=== PATIENT | female | born 1955 | race African-American/Black ===

== ENCOUNTER 2018-12-28 17:00 | Outpatient (CLI) | payer OTHER | END 2018-12-28 17:01 | disposition home or self-care (01) | LOC: SLEEPLAB 17:00 | PROVIDERS: ATTEND Family Medicine | DX: G47.33 Obstructive sleep apnea (adult) (pediatric) (principal); I10 Essential (primary) hypertension; E11.9 Type 2 diabetes mellitus without complications; F32.9 Major depressive disorder, single episode, unspecified | CPT/HCPCS: 95806 ==

== ENCOUNTER 2020-01-08 11:28 | Emergency (ER) | payer MEDICARE, OTHER ==
--- NOTE | 2020-01-08 12:43 | RAD ---
CHEST ONE VIEW: History: Cough Comparison: 05-17-17 FINDINGS: There is rotation to the left. Heart size is borderline. There is some bilateral vascular congestion and probable small left pleural effusion. No confluent lobar pneumonia. Little change from prior stud y. IMPRESSION: Mild vascular congestion with probable small left pleural effusion. No confluent lobar pneumonia or o ther acute process. POS: [facility]
== END 2020-01-08 12:46 | disposition home or self-care (01) ==
LOC: ERS 11:28
DX: R05 Cough (principal); E66.01 Morbid (severe) obesity due to excess calories; E11.9 Type 2 diabetes mellitus without complications; I25.10 Atherosclerotic heart disease of native coronary artery without angina pectoris; I11.0 Hypertensive heart disease with heart failure; I50.9 Heart failure, unspecified; D64.9 Anemia, unspecified; F32.9 Major depressive disorder, single episode, unspecified; I21.3 ST elevation (STEMI) myocardial infarction of unspecified site; F03.90 Unspecified dementia, unspecified severity, without behavioral disturbance, psychotic disturbance, mood disturbance, and anxiety; Z86.73 Personal history of transient ischemic attack (TIA), and cerebral infarction without residual deficits; Z87.01 Personal history of pneumonia (recurrent)
CPT/HCPCS: 71045; 93005

== ENCOUNTER 2020-06-12 14:26 | Inpatient (IN) | payer MEDICARE, MEDICAID, OTHER ==
[~2020-06-12 14:26] MED LIST: Iopamidol 370 76% 100 ML VIAL ONE
[2020-06-12 17:37] LABS: Hemoglobin 11.7 g/dL (12.0-16.0); Mean Corpuscular Hemoglobin 31.8 pg (27.0-31.0); Mean Corpuscular Volume 99.7 fL (78.0-98.0); Mean Platelet Volume 8.2 fL (7.4-10.4); Platelet Count 257 thou/uL (130-400); RBC Distribution Width 13.6 % (11.5-14.5); Red Blood Cell (RBC) Count 3.68 mill/uL (4.20-5.40); White Blood Cell (WBC) Count 6.3 thou/uL (4.8-10.8)
[2020-06-12 17:55] LABS: Eosinophils 2 % (0-10); Lymphocytes 47 % (21-51); MDiff Complete? YES; Monocytes 10 % (0-10); Neutrophil 40 % (42-75); Platelet Morphology Comment Appears Adequate; Polychromasia SLIGHT = 2-3 cells (100X) (0-2/hpf)
[2020-06-12 17:58] LABS: ALT (SGPT) 24 U/L (8-55); AST (SGOT) 27 U/L (5-34); Albumin 3.3 g/dL (3.4-4.8); Alkaline Phosphatase 220 U/L (40-110); Anion Gap 13 mmol/L (10-20); BUN (Urea Nitrogen) 51 mg/dL (9.8-20.1); Bilirubin, Total 0.4 mg/dL (0.2-1.2); CK (CPK) 86 U/L (29-168); Calc. Creatinine Clearance 0 mL/min (70-130); Calcium 9.4 mg/dL (7.8-10.44); Carbon Dioxide 31 mmol/L (23-31); Chloride 97 mmol/L (98-107); Estimated GFR-MDRD 8; Globulin 4.2 g/dL (2.4-3.5); Glucose 141 mg/dL (80-115); Potassium 4.8 mmol/L (3.5-5.1); Protein, Total 7.5 g/dL (6.0-8.3); Sodium 136 mmol/L (136-145)
[2020-06-12] MEDS ORDERED: metroNIDAZOLE 500 MG/100 ML BAG ONE (18:00)
[2020-06-12] MEDS ORDERED: Doxycycline 100 MG CAP PO SCH (18:15)
[2020-06-12] MEDS ORDERED: Diazepam 5 MG TAB ONE (19:58)
--- NOTE | 2020-06-12 23:16 | PDOC.FPRHP ---
- History of Present Illness Chief Complaint: vaginal bleeding History of Present Illness: Pt is a 65yo female with PMH of obesity, DM, ESRD who presents with vaginal bleeding. Pt is a resident at a [facility] in [place]. Says nurse noticed bleeding. She was seen by placement interviewer at outpatient clinic but was unable to be fully evaluated due to patient's size, so she was sent to ED. Dr. Lacy, news production supervisor, was consulted from ED. Pt denies any abdominal pain, dizziness, CP, SOB or palpitations. ED Course: 1L LR, diazepam - Allergies/Adverse Reactions Allergies Allergy/AdvReac Type Severity Reaction Status Date / Time No Known Drug Allergies Allergy Verified 06/13/20 02:02 - Home Medications Medication Instructions Recorded Confirmed Type Acetaminophen [Tylenol Regular 650 mg PO Q6HR PRN 09/04/16 06/13/20 History Strength] Aspirin Chewable [Aspirin Chewable 81 mg PO QAM 09/04/16 06/13/20 History Tablet] Atorvastatin Calcium [Lipitor] 40 mg PO HS 09/04/16 06/13/20 History Ferrous Sulfate [Feosol] 325 mg PO DAILY 09/04/16 06/13/20 History buPROPion HCl [Wellbutrin] 100 mg PO BID 09/04/16 06/13/20 History Apixaban [Eliquis] 5 mg PO BID 01/02/17 06/13/20 History Carvedilol [Coreg] 6.25 mg PO BID 01/02/17 06/13/20 History Amiodarone [Cordarone] 200 mg PO BID 06/13/20 06/13/20 History BuPROPion SR [Wellbutrin SR] 100 mg PO QAM 06/13/20 06/13/20 History Cetirizine HCl [Zyrtec] 10 mg PO QAM 06/13/20 06/13/20 History Donepezil HCl [Aricept] 10 mg PO QPM 06/13/20 06/13/20 History Insulin Detemir [Levemir] 6 units SQ BID 06/13/20 06/13/20 History Sevelamer Carbonate [Renvela] 1,600 mg PO BID 06/13/20 06/13/20 History risperiDONE [RisperDAL] 0.25 mg PO BID 09/22/20 09/22/20 History - History PMHx: DM2, HTN, morbid obesity, ESRD, depression, dementia PSHx: none FHx: mpm-heart Social: no T/A/D - Review of Systems General: denies: fever/chills, weight/appetite/sleep changes Eyes: denies: eye pain, vision changes ENT: denies: nasal congestion, rhinorrhea Respiratory: denies: cough, congestion, shortness of breath Cardiovascular: denies: chest pain, palpitation, edema Gastrointestinal: denies: nausea, vomiting, diarrhea, abdominal pain Genitourinary: denies: incontinence, dysuria Skin: denies: rashes, itching Musculoskeletal: denies: pain, tenderness Neurological: denies: numbness, syncope Psychological: denies: anxiety - Vital signs BP: 158/54, HR 58, RR 17, T 98.3, O2 100% on 2L FMR H&P: Results - Labs Result Diagrams: 06/13/20 01:01 06/12/20 17:23 Lab results: WBC 6.3 thou/uL (4.8-10.8) 06/12/20 17:23 Hgb 11.7 g/dL (12.0-16.0) L 06/12/20 17:23 Hct 36.7 % (36.0-47.0) 06/12/20 17:23 MCV 99.7 fL (78.0-98.0) H 06/12/20 17:23 Plt Count 257 thou/uL (130-400) 06/12/20 17:23 Sodium 136 mmol/L (136-145) 06/12/20 17:23 Potassium 4.8 mmol/L (3.5-5.1) 06/12/20 17:23 Chloride 97 mmol/L (98-107) L 06/12/20 17:23 Carbon Dioxide 31 mmol/L (23-31) 06/12/20 17:23 BUN 51 mg/dL (9.8-20.1) H 06/12/20 17:23 Creatinine 6.37 mg/dL (0.6-1.1) H 06/12/20 17:23 Glucose 141 mg/dL (80-115) H 06/12/20 17:23 Lactic Acid 1.5 mmol/L (0.5-2.2) 06/12/20 17:23 Calcium 9.4 mg/dL (7.8-10.44) 06/12/20 17:23 Total Bilirubin 0.4 mg/dL (0.2-1.2) 06/12/20 17:23 AST 27 U/L (5-34) 06/12/20 17:23 ALT 24 U/L (8-55) 06/12/20 17:23 Alkaline Phosphatase 220 U/L (40-110) H 06/12/20 17:23 Creatine Kinase 86 U/L (29-168) 06/12/20 17:23 Serum Total Protein 7.5 g/dL (6.0-8.3) 06/12/20 17:23 Albumin 3.3 g/dL (3.4-4.8) L 06/12/20 17:23 FMR H&P: A/P - Plan #Abnormal uterine bleeding -seen by obgyn in ED, suspected uterine carcinoma -unable to tolerate vaginal exam -CT ab/pelv done, pending read -plan for exam under anesthesia tomorrow, VP3, vaginal discharge culture -Abx: flagyl and doxycycline #Hypothyroid -pending TSH and T4 #ESRD on HD -consult Dr. Mustafa, her travel rn, in am - usually gets dialysis T//Fri #DM -glucose checks ACHS -continue home meds #HTN -continue home meds #depression -continue home meds #dementia -continue home meds Code: Full Diet: CC, Renal DVT ppx: heparin Dispo: Admit tele inpatient, Obgyn recs for AUB, LOS >48hours FMR H&P: Upper Level - Plan Date/Time: 06/12/20 1414 Ms Abarca is a 65yo female with pmh of DMII, ESRD on HD who presented to Dr Guthrie office earlier today from [facility] for vaginal bleeding and discharge. She was unable to preform pelvic exam due to patients body habitus with equipment available therefore was sent over for further workup and evaluation. Buildings And Grounds Director was consulted from ED and vaginal exam revealed purulent discharge per ED physician. CT scan is pending at this time. PE: General: NAD, Morbidly obese CV: RRR, no murmur Pulm: CTA b/l Abdomen: Nontender. BS + A/P: AUB -Dr Lacy with ad taker consulted from ED. Pelvic exam revealed purulent discharge. CT read pending at this time of abdomen/pelvis. Started on doxycycline and Flagyl in ED, will continue. Plan for pelvic exam with anesthesia tomorrow, will collect VP3. Admit to medical. DMII -ACHS accuchecks. Continue home medications. Last A1c 7.1% in 10/2019 will recheck A1c in case pt needs surgery. Hypothyroidism -Last TSH <0.015, will recheck with T4. I, Huma Carroll, have evaluated this patient and agree with findings/plan as outlined by internal audit consultant resident. Pertinent changes/additions are listed here. Addendum - Attending - Attending Attestation Date/Time: 06/13/20 0043 I personally evaluated the patient and discussed the management with Dr. Tse/Glen I agree with the History, Examination, Assessment and Plan documented above with any addition or exceptions noted below. 65-year-old -[place] woman with past medical history of end-stage renal disease on hemodialysis, hypertension, hyperlipidemia, diabetes mellitus type 2, and morbid obesity. She presented for a pelvic exam from her WARDROBE MISTRESS's office due to concern for vaginal bleeding. WARDROBE MISTRESS hospitalist was consulted in the ER for pelvic exam. Per report patient had a large amount of purulent discharge coming from her vagina during the exam. WARDROBE MISTRESS recommended admission for antibiotics and surgical exploration with examination under anesthesia. Otherwise physical exam is unremarkable. Laboratory evaluation was unremarkable. CT abdomen and pelvis without contrast was unremarkable. Admit inpatient for concerning uterine versus vaginal mass, possible SOFTWARE TRAINER infection, and need for po tential hysterectomy. We will medically optimize the patient for surgery as anticipated in the next few days. Her chronic medical problems appear to be stable at this time. Will consider cardiology consultation for recommendations and cardiac clearance. WARDROBE MISTRESS to manage antibiotics and anesthetize exam. We will coordinate with them.
[2020-06-12] MEDS ORDERED: Ondansetron PF 4 MG/2 ML Vial IVP PRN (23:41)
[2020-06-12] MEDS ORDERED: Dextrose 5% in Water 1,000 ML IV PRN (23:41)
[2020-06-12] MEDS ORDERED: Acetaminophen 325 MG TAB PO PRN (23:41)
[2020-06-12] MEDS ORDERED: HumaLOG 300 UNITS/3 ML VIAL SC PRN (23:41)
[2020-06-12] MEDS ORDERED: Dextrose 50% Abboject 50 ML SYRINGE SLOW IVP PRN (23:41)
[2020-06-12] MEDS ORDERED: Acetaminophen 650 MG Suppository PR PRN (23:41)
[2020-06-12] MEDS ORDERED: Ondansetron ODT 4 MG TAB PO PRN (23:41)
[2020-06-13 01:11] LABS: #Eosinphils 0.2 thou/uL (0.0-0.7); #Lymphocytes 2.3 thou/uL (1.20-3.40); #Monocytes 0.8 thou/uL (0.11-0.59); #Neutrophils 3.4 thou/uL (1.40-6.50); %Basophils 0.2 % (0.0-1.0); %Eosinophils 2.3 % (0.0-10.0); %Lymphocytes 34.5 % (21.0-51.0); %Monocytes 12.3 % (0.0-10.0); %Neutrophils 50.8 % (42.0-75.0); Hemoglobin 11.4 g/dL (12.0-16.0); Mean Corpuscular HGB CONC 30.8 g/dL (32.0-36.0); Mean Corpuscular Hemoglobin 31.5 pg (27.0-31.0); Mean Platelet Volume 8.2 fL (7.4-10.4); Platelet Count 248 thou/uL (130-400); RBC Distribution Width 13.9 % (11.5-14.5); Red Blood Cell (RBC) Count 3.63 mill/uL (4.20-5.40); White Blood Cell (WBC) Count 6.7 thou/uL (4.8-10.8)
[2020-06-13 01:36] LABS: Hemoglobin A1c 7.8 % (4.0-6.0)
[2020-06-13 02:00] VITALS: BMI 61.9
[2020-06-13 02:20] LABS: Thyroid Stimulating Hormone 0.0046 uIU/mL (0.35-4.94)
[2020-06-13 04:40] LABS: Free T4 (Free Thyroxine) 1.34 ng/dL (0.70-1.48)
[2020-06-13] MEDS: metroNIDAZOLE 500 MG in Premix Bag 1 BAG IVPB SCH ×2 (05:18→17:15)
[2020-06-13] MEDS: HumaLOG 300 UNITS/3 ML VIAL SC PRN ×3 (06:05→17:15)
--- NOTE | 2020-06-13 07:22 | RAD ---
PORTABLE CHEST: Date: 06/12/2020 PROVIDED CLINICAL HISTORY: Post central line. COMPARISON: 01/08/2020. FINDINGS: Evaluation is limited by patient body habitus. The cardiac silhouette appears prominent, which may be at least partially on the basis of portable technique. There is poor visualization in the left hemid iaphragm which could reflect left basilar pleural and/or parenchymal opacity. Left IJ central line is demonstrated, the tip of which projects in expected location of SVC. Prominence of the pulmonary vas culature. The right lung appears free of significant opacity. No evidence for pneumothorax. IMPRESSION: 1. Prominence of the cardiac silhouette and possible left basilar pleural and/or parenchymal opacity . 2. Prominence of the pulmonary vasculature. POS: [facility]
--- NOTE | 2020-06-13 07:39 | CT ---
CT OF THE ABDOMEN AND PELVIS WITH IV CONTRAST: DATE: 06/12/2020. PROVIDED CLINICAL HISTORY: Abdominal pain and vaginal discharge. FINDINGS: Evaluation is limited due to patient body habitus. Portions of the left anterior abdominal wall and bowel within the left anterior abdomen are not entirely included on the imaging volume. The visualized lung bases are free of significant opacity. The liver, spleen, pancreas, kidneys, and adrenal glands demonstrate no significant abnormality. Sub centimeter hypodensity involving the right kidney is statistically a cyst but too small to definitive ly characterize. There is conspicuous rectal fecal retention without apparent wall thickening or surrounding fat stran ding. The urinary bladder is decompressed and not well evaluated. The uterus and ovaries appear nor mal by CT. There is no evidence for bowel obstruction. No inflammatory stranding, free fluid, or free air appar ent with limitations as described above. Vascular calcifications are seen. The osseous structures demonstrate no concerning lytic or blastic lesions. There is a single mildly prominent retroperitoneal lymph node anterior to the left renal vein measur ing about 1.2 cm in short axis. This is nonspecific. IMPRESSION: 1. Limited study as described. 2. Conspicuous rectal fecal retention. 3. Other findings as above. POS: [facility]
[2020-06-13] MEDS ORDERED: Senokot 8.6 MG TAB PO PRN (08:38)
[2020-06-13] MEDS ORDERED: Carvedilol 25 MG TAB PO SCH (09:00)
[2020-06-13] MEDS ORDERED: Apixaban 5 MG TAB PO SCH (09:00)
[2020-06-13] MEDS: Polyethylene Glycol 3350 17 GM Packet PO SCH (09:57)
[2020-06-13] MEDS: Aspirin Chewable 81 MG TAB PO SCH (09:58)
[2020-06-13] MEDS: Docusate 100 MG CAP PO SCH ×2 (09:58→21:10)
[2020-06-13] MEDS: Heparin 5,000 UNITS/ML VIAL SC SCH ×2 (09:59→21:11)
[2020-06-13] MEDS: Ferrous Sulfate 325 MG TAB PO SCH (09:59)
--- NOTE | 2020-06-13 10:17 | PDOC.FM ---
- Subjective Subjective: Patient feeling well this morning. Denies any complaints. Denies any pain or discomfort in vaginal region, no fullness. Says she is very hungry, last thing she ate was for dinner yesterday and nothing overnight. - Objective MAR Reviewed: Yes Vital Signs & Weight: Vital Signs (12 hours) Temp Pulse Resp BP BP Pulse Ox 06/13/20 07:30 98.1 F 47 L 20 138/54 L 98 06/13/20 04:15 97.8 F 50 L 22 H 135/74 100 06/13/20 01:15 97.6 F 56 L 20 140/67 100 Weight Admit Weight 158.757 kg Weight 158.757 kg I&O: 06/12/20 06/13/20 06/14/20 06:59 06:59 06:59 Output Total 0 Balance 0 Result Diagrams: 06/13/20 01:01 06/12/20 17:23 Phys Exam - Physical Examination Constitutional: NAD morbidly obese HEENT: moist MMs, sclera anicteric Neck: supple Respiratory: clear to auscultation bilateral Cardiovascular: RRR, no significant murmur Gastrointestinal: soft, non-tender, no distention, positive bowel sounds Musculoskeletal: pulses present Neurological: moves all 4 limbs Psychiatric: normal affect, A&O x 3 Skin: no rash, normal turgor Dx/Plan (1) Mucopurulent vaginitis Code(s): N76.0 - ACUTE VAGINITIS Status: Acute (2) Subclinical hypothyroidism Code(s): E03.9 - HYPOTHYROIDISM, UNSPECIFIED Status: Acute (3) Type 2 diabetes mellitus Status: Acute Qualifiers: Diabetes mellitus detention insulin use: without terminal press operator use Diabetes mellitus complication status: with kidney complications Diabetes mellitus complication detail: with chronic kidney disease Chronic kidney disease stage: on chronic dialysis Qualified Code(s): E11.22 - Type 2 diabetes mellitus with diabetic chronic kidney disease; N18.6 - End stage renal disease; Z99.2 - Dependence on renal dialysis - Plan Plan: Patient is a 65 yo female who presents with abnormal vaginal discharge is admitted with suspected severe vaginitis vs cancer: #Abnormal Vaginal Discharge -bleeding noted by long-term staff, on exam in ED by OBGYN had more purulent discharge and culture obtained -seen by OBGYN Dr. Lacy in ED, suspected uterine or vaginal carcinoma vs vaginitis -unable to tolerate vaginal speculum exam -CT ab/pelv reveals stool in rectum, otherwise normal -vaginal discharge culture pending -Consult OBGYN Dr. Sadler, appreciate recommendations -will plan for 48 hours of antibiotics with coverage for vaginitis -will order pelvic U/S for , Jun 15 to further assess -if pelvic ultrasound abnormal, then will plan for vaginal exam under anesthesia -Abx: IV flagyl and doxycycline #Hypothyroid, subclinical -TSH 0.0046 (low) and T4 1.34 (normal) -continue to monitor #ESRD on HD - Consult Dr. Mustafa, her dining room attendant, to arrange dialysis, appreciate recs - usually gets dialysis T//Fri #DM -glucose checks ACHS -continue home meds #HTN -continue home meds #Depression -continue home meds #Dementia -continue home meds Code: Full Diet: CC, Renal DVT ppx: heparin Dispo: Stable, Admitted to inpatient on telemetry unit. OBGYN consulted, appreciate recommendations. Nephrology consulted to arrange dialysis while inpatient. Continue antibiotics. Anticipate discharge in >48 hours. Addendum - Attending - Attending Attestation Date/Time: 06/13/20 9338 I personally evaluated the patient and discussed the management with Dr. Christianson. I agree with the History, Examination, Assessment and Plan documented above with any addition or exceptions noted below.
--- NOTE | 2020-06-13 11:17 | PDOC.BPN ---
- Brief Progress Note Encounter Date: 06/13/20 Encounter Time: 11:15 OBGYN oncall Patient reviewed with Dr Lacy/Dr Barroso/Dr Beatriz Christianson I have seen the patient at bedside and plan reviewed. Do not suspect active VB as SXS may be more compatible with active vaginosis. Dr Lacy ordered IV doxy and flagyl to see if purulent vag dsch resolves/improves/ Plan is to continue ABX for 48 hrs and then consider TVUS to assess endometrial stripe and CX. Spec exam not tolerated by per Dr Lacy on his attempt previously. Patient also with fecal impaction...being addressed by FM at this time. Plan is to continue ABX for now and order TVUS this week. She has dialysis scheduled today and (I have also communicated with Dr Mustafa)
--- NOTE | 2020-06-13 11:38 | CON ---
DATE OF CONSULTATION: REASON FOR CONSULTATION: End-stage renal disease, for maintenance hemodialysis. HISTORY OF PRESENT ILLNESS: This is a very pleasant 65-year-old female, presented to the hospital with vaginal bleeding. The patient is on dialysis, Friday, , Friday. The patient denies any nausea, vomiting, or chest pain. PAST MEDICAL HISTORY: Significant for end-stage renal disease, morbid obesity, hypertension, anemia, tunneled dialysis catheter, AV fistula, diabetes mellitus, dementia. SOCIOECONOMIC HISTORY: No alcohol or drug abuse. FAMILY HISTORY: Negative for ESRD. ALLERGIES: REVIEWED. HOME MEDICATIONS: List reviewed. HOSPITAL MEDICATIONS: Reviewed. REVIEW OF SYSTEMS: A 15-point review of systems was performed, was negative except for positives noted above. HEENT: Eyes intact, no diplopia. Ears: No hearing loss or earache. Nose: No discharge or bleeding. Chest: No cough or phlegm. Abdomen: No nausea or vomiting. Genitourinary: No hematuria. No Melendez catheter. Musculoskeletal: No low back pain. No joint swelling or pain. Neurological: No syncope. No seizures. Skin: No complaints of rash or itching. Psychiatric: No depression. Constitutional: No weight loss or loss of appetite. PHYSICAL EXAMINATION: General: The patient is awake and alert. Vital Signs: Afebrile, pulse 50, breathing at 16, blood pressure 135/74. HEENT: Head normocephalic and atraumatic. Eyes intact, no ulcers. Nose intact, no ulcers. Ears intact, no ulcers. Neck: Supple. No JVD. Chest: Symmetrical and clear. Cardiovascular: Shows S1 and S2, no rub, no murmur. Gastrointestinal: Abdomen is soft, bowel sounds positive. Extremities: Show no edema or ulcers. Skin: Shows no rash or petechiae. Musculoskeletal: Shows no joint swelling or stiffness. Genitourinary: Shows no Melendez or CVA tenderness. Neurologic: Motor intact. Cranial nerves intact. LABORATORY DATA: Show hemoglobin is 11. ASSESSMENT AND PLAN: 1. Stage 6 chronic kidney disease, plan dialysis. 2. Hypertension, stable. 3. Anemia, stable. 4. Medication based on GFR, appropriate. Job ID: [id number]
[2020-06-13 12:22] LABS: HBSAg Index 0.21 S/CO (0-0.99); Hep B Surf Ag Non-Reactive S/CO (NonReactive)
--- NOTE | 2020-06-13 13:12 | PDOC.BPN ---
- Brief Progress Note Encounter Date: 06/13/20 Encounter Time: 13:05 Dr Beatriz Ellison was able to communicate with Ms Rima PCP. The patient has had a pelvic US end of Apr which showed a calcified anterior uterine mass c/w fibroid. This is likely incidental finding based on her age. They were not able to well describe the ES. Continue plan for now. Possible EMB vs other once the purulent dsch improves.
--- NOTE | 2020-06-13 13:15 | CON ---
DATE OF CONSULTATION: 06/12/2020 HISTORY OF PRESENT ILLNESS: The patient is a 65-year-old female, who was transferred to the emergency room from Dr. Felton's office for vaginal bleeding. Due to the patient's habitus and overall poor health, the exam was unable to be performed there in the office. Upon arrival to the emergency room, the patient reported that she has had some bleeding for the last couple of weeks that she is aware of. She also reports that she has been bedridden for several years. She has had 2 strokes, severely impacting her ability to care for herself. She also reports a history of end-stage renal disease, diabetes, and heart failure. The patient reports around age 55, she stopped having periods and prior to that, has a history of regular monthly predictable periods. She denies any history of abnormal Pap smears or any prior history of irregular bleeding. PAST MEDICAL HISTORY: Includes; 1. Diabetes. 2. Hypertension. 3. Morbid obesity. 4. End-stage renal disease. 5. Depression. PAST SURGICAL HISTORY: Negative. SOCIAL HISTORY: The patient lives at a local half-way, where she receives her care. PHYSICAL EXAMINATION: VITAL SIGNS: At the time of my initial exam in the emergency room, the patient had a blood pressure of 128/60, pulse of 60, respiratory rate of 18, saturating 98% on room air. GENERAL: She was supine and really unable to move much without significant assistance. She is morbidly obese, reportedly weighing over 350 pounds. She does not appear to be in any acute distress. : In an attempt to perform a speculum exam, I have 2 assistants to help manipulate each leg. She had fecal material present on her perineum and her anus with placement of a speculum into the vagina. The vulva did not appear to have any lesions or erythema exteriorly. Vagina upon placement of the speculum showed a copious amount of purulent looking foul-smelling material. This material was removed with at least 10 Arriaga swabs, and by that time, the patient reported that she could not tolerate the exam any longer and asked to terminate our efforts for evaluation of her cervix and endometrium. At this point, the patient's exam was completed. LABORATORY AND DIAGNOSTIC DATA: Labs there in the emergency room showed a white count of 6.3, hemoglobin of 11.7, hematocrit 36.7, and platelets of 257,000. Sodium of 136, potassium of 4.8, chloride 97, BUN of 51, creatinine 6.37, glucose of 141. She had a lactic acid of 1.5, AST of 27, ALT of 24, free T4 of 1.34. Hemoglobin A1c of 7.8. CT scan of the abdomen and pelvis was performed, later in the evening demonstrating on CT what appears to be normal uterus and ovaries. She also has a large collection of fecal material in the rectum. There does not appear to be any fat stranding or wall thickening around the rectum. No other inflammatory stranding. There was a single mildly prominent retroperitoneal lymph node anterior to the renal vein. After evaluation in the emergency room, decision was made to place the patient on doxycycline and metronidazole at least for 48 hours with the intention of exam under anesthesia. She has been admitted to the Family Medicine Service, where they can evaluate her other medical problems and optimize them the best they can in preparation for exam under anesthesia and possible D and C should that be necessary. After discussion with my partner, Dr. Sadler, we have determined a course of action. We will continue her antibiotics for the next 48 hours, during which time the family medicine team can optimize in preparation for exam under anesthesia should that be necessary, also in deep tacking the rectum to aid in a better imaging by pelvic ultrasound. Should the pelvic ultrasound in 2 days also support a normal-appearing uterus with a normal endometrial lining less than 4 mm, our tool and die assembler exam at that point will be completed. Should she have evidence suggesting that exam under anesthesia and endometrial biopsy would be necessary for diagnosis, we can at that point determine the safety for such action versus transfer to Gynecology Oncology, where they can continue the workup. We appreciate family medicine's assistance and caring for her primary medical concerns and problems. Dr. Sadler is on duty today and will be assuming care for the next 24 hours. Job ID: [id number]
[2020-06-13 13:35] LABS: SARS-CoV-2 MS2 Positive; SARS-CoV-2 N Gene Negative; SARS-CoV-2 S Gene Negative; SARS-CoV-2 by NAA Not Detected (NotDetected); SARS-CoV-2 orf1ab Negative
[2020-06-13] MEDS ORDERED: Carvedilol 3.125 MG TAB PO SCH (21:00)
[2020-06-13] MEDS: Amiodarone 200 MG TAB PO SCH (21:08)
[2020-06-13] MEDS: Atorvastatin Calcium 40 MG TAB PO SCH (21:08)
[2020-06-13] MEDS: Carvedilol 3.125 MG TAB PO SCH (21:09)
[2020-06-13] MEDS: Donepezil HCl 10 MG TAB PO SCH (21:10)
[2020-06-13] MEDS: Sevelamer Carbonate 800 MG TAB PO SCH (21:12)
[2020-06-14] MEDS: metroNIDAZOLE 500 MG in Premix Bag 1 BAG IVPB SCH ×2 (05:16→17:14)
--- NOTE | 2020-06-14 06:37 | PDOC.BPN ---
- Brief Progress Note Encounter Date: 06/14/20 Encounter Time: 06:30 OBGYN Patient seen at bedside. She told me she was able to pass some stool yesterday and feels a bit better. Had dialysis yesterday as scheduled. VSSAFEB Assessment and Plan: Multiple medical issues with unclear vag bleed vs dsch..on po doxy and flagyl. Plan is the same...continue ABX and plan for TVUS tomorrow to check stripe (ES). Patent had prior sono with PCP wasd that was NOT transvag per patient, transabd very limitd in this case due to BMI
[2020-06-14] MEDS: Heparin 5,000 UNITS/ML VIAL SC SCH ×2 (09:16→22:02)
[2020-06-14] MEDS: Amiodarone 200 MG TAB PO SCH ×2 (09:17→22:02)
[2020-06-14] MEDS: Ferrous Sulfate 325 MG TAB PO SCH (09:17)
[2020-06-14] MEDS: Docusate 100 MG CAP PO SCH ×2 (09:18→22:03)
[2020-06-14] MEDS: Loratadine 10 MG TAB PO SCH (09:18)
[2020-06-14] MEDS: Carvedilol 3.125 MG TAB PO SCH ×2 (09:18→22:02)
[2020-06-14] MEDS: Sevelamer Carbonate 800 MG TAB PO SCH ×2 (09:18→22:02)
[2020-06-14] MEDS: Polyethylene Glycol 3350 17 GM Packet PO SCH (09:18)
[2020-06-14] MEDS: Aspirin Chewable 81 MG TAB PO SCH (09:19)
--- NOTE | 2020-06-14 09:30 | PRG ---
DATE OF SERVICE: 06/14/2020 SUBJECTIVE: A 65-year-old female, being seen for end-stage renal disease. The patient denied any nausea, vomiting, or chest pain. OBJECTIVE: General: The patient is awake and alert. Vital Signs: Afebrile, pulse 75, breathing at 16, blood pressure 130/58. HEENT: Head normocephalic and atraumatic. Eyes intact, no ulcers. Nose intact, no ulcers. Ears intact, no ulcers. Neck: Supple. No JVD. Chest: Symmetrical and clear. Cardiovascular: Shows S1 and S2, no rub, no murmur. Gastrointestinal: Abdomen is soft, bowel sounds positive. Extremities: Show no edema or ulcers. Skin: Shows no rash or petechiae. Musculoskeletal: Shows no joint swelling or stiffness. Genitourinary: Shows no Melendez or CVA tenderness. Neurologic: Motor intact. Cranial nerves intact. LABORATORY DATA: Reviewed. ASSESSMENT AND PLAN: 1. Stage 6 chronic kidney disease, plan dialysis per schedule. 2. Hypertension, stable. 3. Anemia, stable. 4. Medication based on GFR appropriate. Job ID: [id number]
--- NOTE | 2020-06-14 10:06 | PDOC.FM ---
- Subjective Subjective: Patient feeling well this morning, denies any complaints other than that she is hungry. Spoke with patient's PCP Dr. Buenrostro yesterday. Patient had attempted pelvic ultrasound on 05/19/2020 which revealed an anterior calcified mass in uterus, was unable to evaluate endometrial stripe. Upon further review of report it appears that this U/S was transabdominal and not transvaginal. Spoke with Dr. Sadler who states mass is likely a uterine fibroid. Will still plan for TVUS on 06/15/2020 for further evaluation. - Objective MAR Reviewed: Yes Vital Signs & Weight: Vital Signs (12 hours) Temp Pulse Resp BP Pulse Ox 06/14/20 07:35 97.5 F L 60 15 142/63 H 100 06/14/20 04:31 98.9 F 54 L 16 130/58 L 91 L 06/14/20 00:23 97.8 F 57 L 16 123/65 99 Weight Admit Weight 158.757 kg Weight 158.757 kg I&O: 06/13/20 06/14/20 06/15/20 06:59 06:59 06:59 Intake Total 875 Output Total 0 800 Balance 0 75 Result Diagrams: 06/13/20 01:01 06/12/20 17:23 Phys Exam - Physical Examination Constitutional: NAD HEENT: moist MMs, sclera anicteric Neck: no JVD, supple Respiratory: clear to auscultation bilateral Cardiovascular: RRR, no significant murmur Gastrointestinal: soft, non-tender, positive bowel sounds Musculoskeletal: pulses present Neurological: normal sensation, moves all 4 limbs Psychiatric: normal affect Skin: no rash, normal turgor Dx/Plan (1) Mucopurulent vaginitis Code(s): N76.0 - ACUTE VAGINITIS Status: Acute (2) Subclinical hypothyroidism Code(s): E03.9 - HYPOTHYROIDISM, UNSPECIFIED Status: Acute (3) Type 2 diabetes mellitus Status: Acute Qualifiers: Diabetes mellitus vermin exterminator insulin use: without mcfp use Diabetes mellitus complication status: with kidney complications Diabetes mellitus complication detail: with chronic kidney disease Chronic kidney disease stage: on chronic dialysis Qualified Code(s): E11.22 - Type 2 diabetes mellitus with diabetic chronic kidney disease; N18.6 - End stage renal disease; Z99.2 - Dependence on renal dialysis - Plan Plan: Patient is a 65 yo female who presents with abnormal vaginal discharge is admitted with suspected severe vaginitis vs cancer: #Abnormal Vaginal Discharge -bleeding noted by [facility] staff, on exam in ED by OBGYN had more purulent discharge and culture obtained -seen by OBGYN Dr. Lacy in ED, suspected uterine or vaginal carcinoma vs vaginitis -unable to tolerate vaginal speculum exam in ED -CT ab/pelv reveals stool in rectum, otherwise normal -vaginal discharge culture preliminary positive for gram neg rods -Consult OBGYN Dr. Sadler, appreciate recommendations -will plan for 48 hours of antibiotics with coverage for vaginitis -will order TVUS for , Jun 15 to further assess -if pelvic ultrasound abnormal, then will plan for vaginal exam under anesthesia, may require EMB -Abx: IV flagyl and doxycycline -Transabdominal U/S on 05/19/2020 showed anterior calcified mass in uterus, c/w uterine fibroid. Will need Transvaginal approach to further evaluate #Hypothyroid, subclinical -TSH 0.0046 (low) and T4 1.34 (normal) -continue to monitor #ESRD on HD - Consult Dr. Mustafa, her quill skinner, to arrange dialysis, appreciate recs - usually gets dialysis T//Fri #DM -glucose checks ACHS -continue home meds #HTN -continue home meds #Depression -continue home meds #Dementia -continue home meds Code: Full Diet: CC, Renal DVT ppx: heparin Dispo: Stable, Admitted to inpatient on telemetry unit. OBGYN consulted, appreciate recommendations. Nephrology consulted to arrange dialysis while inpatient. Continue antibiotics. Plan for TVUS tomorrow. Anticipate discharge in next 48-72 hours. Addendum - Attending - Attending Attestation Date/Time: 06/14/20 0043 I personally evaluated the patient and discussed the management with Dr. Christianson. I agree with the History, Examination, Assessment and Plan documented above with any addition or exceptions noted below.
[2020-06-14] MEDS: HumaLOG 300 UNITS/3 ML VIAL SC PRN ×2 (10:40→17:14)
[2020-06-14] MEDS: Donepezil HCl 10 MG TAB PO SCH (22:01)
[2020-06-14] MEDS: Atorvastatin Calcium 40 MG TAB PO SCH (22:04)
[2020-06-15] MEDS: metroNIDAZOLE 500 MG in Premix Bag 1 BAG IVPB SCH (05:38)
--- NOTE | 2020-06-15 07:45 | PDOC.EVN ---
Event Note - Event Note Event Note: genital cultures growing predominantly e-coli. suspect vaginitis vs endometrial infection. Pt has been afebrile and white count has been normal, and no left shift. I have changed abx to po bactrim for now. TV U/S ordered for today. If endometrial stripe less than 4mm pt can d/c home from gynecology teacher perspective. If >4mm will need exam under anesthesia for endometrial biopsy. Would consult Anesthesia to evaluate. Perhaps can be done with conscious sedation.
[2020-06-15] MEDS ORDERED: Diazepam 5 MG TAB PO PRN (08:07)
--- NOTE | 2020-06-15 08:20 | PDOC.FM ---
- Subjective Subjective: Patient resting in bed this morning, voices no complaints. She had her antibiotic regimen shifted to Bactrim this morning, cultures resulted positive for E. Coli. Is also due to have her TVUS completed later this morning. - Objective MAR Reviewed: Yes Vital Signs & Weight: Vital Signs (12 hours) Temp Pulse Resp BP Pulse Ox 06/15/20 07:51 98.2 F 57 L 12 157/67 H 100 06/15/20 03:53 98.1 F 56 L 20 134/62 100 06/15/20 01:00 98.1 F 54 L 18 130/58 L 100 06/14/20 21:58 98.2 F 49 L 20 124/53 L 100 Weight Admit Weight 158.757 kg Weight 158.757 kg I&O: 06/14/20 06/15/20 06/16/20 06:59 06:59 06:59 Intake Total 875 950 Output Total 800 100 Balance 75 850 Result Diagrams: 06/13/20 01:01 06/12/20 17:23 Phys Exam - Physical Examination Constitutional: NAD morbidly obese HEENT: moist MMs Neck: no JVD, supple Respiratory: clear to auscultation bilateral Cardiovascular: RRR, no significant murmur Gastrointestinal: soft, non-tender, no distention, positive bowel sounds Neurological: normal sensation, moves all 4 limbs Psychiatric: normal affect Skin: no rash Dx/Plan (1) Mucopurulent vaginitis Code(s): N76.0 - ACUTE VAGINITIS Status: Acute (2) Subclinical hypothyroidism Code(s): E03.9 - HYPOTHYROIDISM, UNSPECIFIED Status: Acute (3) Type 2 diabetes mellitus Status: Acute Qualifiers: Diabetes mellitus joint terminal attack controller insulin use: without retirement use Diabetes mellitus complication status: with kidney complications Diabetes mellitus complication detail: with chronic kidney disease Chronic kidney disease stage: on chronic dialysis Qualified Code(s): E11.22 - Type 2 diabetes mellitus with diabetic chronic kidney disease; N18.6 - End stage renal disease; Z99.2 - Dependence on renal dialysis - Plan Plan: Patient is a 65 yo female who presents with abnormal vaginal discharge is ad mitted with suspected severe vaginitis vs cancer: #Abnormal Vaginal Discharge -bleeding noted by care home staff, on exam in ED by OBGYN had more purulent discharge and culture obtained -seen by OBGYN Dr. Lacy in ED, suspected uterine or vaginal carcinoma vs vaginitis initially--now most likely vaginitis 2/2 E. Coli infection -unable to tolerate vaginal speculum exam in ED -CT ab/pelv reveals stool in rectum, otherwise normal -vaginal discharge culture positive for gram neg rods E.coli -Consult OBGYN Dr. Sadler, appreciate recommendations -will plan for 48 hours of antibiotics with coverage for vaginitis -will order TVUS for , Jun 15 to further assess -if pelvic ultrasound abnormal, then will plan for vaginal exam under anesthesia, may require EMB -Abx: IV flagyl and doxycycline (06/13-06/15); switched to PO SS Bactrim on 06/15 AM -Transabdominal U/S on 05/19/2020 showed anterior calcified mass in uterus, c/w uterine fibroid -Transvaginal U/S to further evaluate endometrial stripe, will give 5 mg Valium if needed prior to U/S -per OBGYN, if endometrial stripe <4 mm can be discharged back to DC with continued Bactrim course -if endometrial stripe >4mm then will need to have endometrial biopsy completed, likely under some form of sedation #Hypothyroid, subclinical -TSH 0.0046 (low) and T4 1.34 (normal) -continue to monitor #ESRD on HD - Consult Dr. Mustafa, her medical research scientist, to arrange dialysis, appreciate recs - usually gets dialysis T//Fri #DM -glucose checks ACHS -continue home meds #HTN -continue home meds #Depression -continue home meds #Dementia -continue home meds Code: Full Diet: CC, Renal DVT ppx: heparin Dispo: Stable, Admitted to inpatient on telemetry unit. OBGYN consulted, appreciate recommendations. Nephrology consulted to arrange dialysis while inpatient. Switch IV antibiotics to PO Bactrim today. Plan for TVUS later today. Anticipate discharge in next 24-48 hours. Addendum - Attending - Attending Attestation Date/Time: 06/15/20 8312 I personally evaluated the patient and discussed the management with Dr. Christianson. I agree with the History, Examination, Assessment and Plan documented above with any addition or exceptions noted below.
[2020-06-15] MEDS: Loratadine 10 MG TAB PO SCH (08:53)
[2020-06-15] MEDS: Sevelamer Carbonate 800 MG TAB PO SCH ×2 (08:53→21:42)
[2020-06-15] MEDS: Docusate 100 MG CAP PO SCH ×2 (08:53→21:42)
[2020-06-15] MEDS: Amiodarone 200 MG TAB PO SCH ×2 (08:54→21:42)
[2020-06-15] MEDS: Ferrous Sulfate 325 MG TAB PO SCH (08:54)
[2020-06-15] MEDS: Sulfameth/Trimethoprim SS 400-80MG TAB PO SCH ×2 (08:54→21:42)
[2020-06-15] MEDS: Carvedilol 3.125 MG TAB PO SCH ×2 (08:54→21:42)
[2020-06-15] MEDS: Aspirin Chewable 81 MG TAB PO SCH (08:54)
[2020-06-15] MEDS: Polyethylene Glycol 3350 17 GM Packet PO SCH (08:55)
[2020-06-15] MEDS: Heparin 5,000 UNITS/ML VIAL SC SCH ×2 (08:55→21:45)
[2020-06-15] MEDS ORDERED: Sulfameth/Trimethoprim DS 800-160mg TAB PO SCH (09:00)
[2020-06-15] MEDS: HumaLOG 300 UNITS/3 ML VIAL SC PRN (11:21)
--- NOTE | 2020-06-15 11:34 | ULT ---
Exam: Transabdominal pelvic ultrasound and endovaginal ultrasound HISTORY: Evaluate for mass. TECHNIQUE: Transabdominal and endovaginal imaging of the pelvis is performed COMPARISON: 05/19/2020 FINDINGS: Due to body habitus, reproductive structures cannot be adequately assessed, including the endometrium . IMPRESSION: Markedly limited and essentially nondiagnostic exam.
--- NOTE | 2020-06-15 12:49 | PRG ---
DATE OF SERVICE: 06/15/2020 SUBJECTIVE: A 65-year-old female, being seen for end-stage renal disease. The patient denied any nausea, vomiting, or chest pain. PHYSICAL EXAMINATION: GENERAL: The patient is awake and alert. VITAL SIGNS: Afebrile, pulse 75, breathing at 16, blood pressure 128/48. HEENT: Head normocephalic and atraumatic. Eyes intact, no ulcers. Nose intact, no ulcers. Ears intact, no ulcers. NECK: Supple. No JVD. CHEST: Symmetrical and clear. CARDIOVASCULAR: Shows S1 and S2, no rub, no murmur. GASTROINTESTINAL: Abdomen is soft, bowel sounds positive. EXTREMITIES: Show no edema or ulcers. SKIN: Shows no rash or petechiae. MUSCULOSKELETAL: Shows no joint swelling or stiffness. GENITOURINARY: Shows no Melendez or CVA tenderness. NEUROLOGIC: Motor intact. Cranial nerves intact. LABORATORY DATA: Labs reviewed. ASSESSMENT AND PLAN: 1. Stage 6 chronic kidney disease, stable. Plan dialysis. 2. Hypertension, stable. 3. Anemia, stable. 4. Medication based on GFR appropriate. Job ID: [id number]
[2020-06-15] MEDS: Donepezil HCl 10 MG TAB PO SCH (21:42)
[2020-06-15] MEDS: Atorvastatin Calcium 40 MG TAB PO SCH (21:42)
--- NOTE | 2020-06-16 07:41 | PRG ---
DATE OF SERVICE: 06/16/2020 TIME OF SERVICE: 0720 hours. Ms. Abarca is resting comfortably. Vital signs are stable. The patient underwent dialysis yesterday. Ultrasound report was nondiagnostic with no visualization of the uterus and endometrium noted. Discussed case with Dr. Lacy, who had been following the patient primarily during her hospitalization and he believes the patient needs to go ahead and proceed with exam under anesthesia, D and C, possible hysteroscopy, possible endometrial biopsy. The patient was posted for this aforementioned, is n.p.o., and Anesthesia has been consulted. Anticipated time of procedure is approximately 0930 hours under care of Dr. Lacy today. The patient understands risks and benefits of procedure. Job ID: [id number]
[2020-06-16] MEDS: Polyethylene Glycol 3350 17 GM Packet PO SCH (07:42)
[2020-06-16] MEDS: Heparin 5,000 UNITS/ML VIAL SC SCH ×2 (07:42→21:18)
[2020-06-16] MEDS: Docusate 100 MG CAP PO SCH ×2 (07:42→21:17)
[2020-06-16] MEDS ORDERED: Midazolam HCl 2 mg/2 ml Vial ONE (08:26)
[2020-06-16] MEDS ORDERED: Fentanyl 100 MCG/2 ML VIAL ONE ×2 (08:26→11:17)
[2020-06-16] MEDS ORDERED: Lidocaine 1% (PF) 30 ML VIAL ONE (08:29)
--- NOTE | 2020-06-16 08:43 | PDOC.EVN ---
Event Note - Event Note Event Note: Ms Abarca is a 65yo female with a PMH complicated by ESRD on dialysis, DM, CHF, HTN, morbid obesity, h/o stroke with hemiplegia. She presented to the ER for vaginal bleeding. Initial exam in ER was no well tolerated and was abandoned before visualization of the cervix and EMBx could be performed. CT shows a normal sized uterus, TVUS reports poor visualization and endometrium could not be assessed. On exam pt has significant purulent material in the vaginal canal that likely is secondary to poor hygiene but may have represented uterine infection or cancer. EUA has been scheduled for this morning. I have discussed the goals of the exam is to obtain a tissue biopsy for diagnosis. If this information would not be acted on ie if she has cancer and she has no plans to pursue any medical management of that condition, a biopsy and the risks associated with anesthesia given her health conditions would be unnecessary. The patient has expressed clearly that she would like to know what is happening and has confirmed again this morning that she would like to proceed with exam under anesthesia with endometrial biopsies. I have spoken to the primary team. Her park services specialist has been dialysing her inpatient and her primary provided, Dr Buenrostro reports that she has not needed adjustments to her medication recently for management of her other comorbidities. We will proceed this morning with surgery.
--- NOTE | 2020-06-16 08:51 | PDOC.FM ---
- Subjective Subjective: Patient feeling well this morning. She is awaiting EMB later this morning with SUPERVISOR PIG MACHINE. Spoke with patient's PCP Dr. Buenrostro this morning. Patient has not had any recent adjustments to medications. Chronic conditions are well controlled. Has seen Cardiology earlier this year at [facility] and had negative workup. Patient denies any complaints. - Objective MAR Reviewed: Yes Vital Signs & Weight: Vital Signs (12 hours) Temp Pulse Resp BP Pulse Ox 06/16/20 07:44 97.5 F L 66 16 113/57 L 97 06/16/20 04:00 97.9 F 61 18 148/74 H 97 06/15/20 23:37 97.8 F 61 16 99/61 98 Weight Admit Weight 158.757 kg Weight 158.757 kg I&O: 06/15/20 06/16/20 06/17/20 06:59 06:59 06:59 Intake Total 950 1250 Output Total 100 1600 Balance 850 -350 Result Diagrams: 06/16/20 09:00 06/16/20 08:25 Phys Exam - Physical Examination Constitutional: NAD morbidly obese HEENT: moist MMs, sclera anicteric Neck: supple, full ROM Respiratory: clear to auscultation bilateral Cardiovascular: RRR, no significant murmur Gastrointestinal: soft, non-tender, positive bowel sounds Musculoskeletal: pulses present Neurological: normal sensation Psychiatric: normal affect Skin: no rash Dx/Plan (1) Mucopurulent vaginitis Code(s): N76.0 - ACUTE VAGINITIS Status: Acute (2) Subclinical hypothyroidism Code(s): E03.9 - HYPOTHYROIDISM, UNSPECIFIED Status: Acute (3) Type 2 diabetes mellitus Status: Acute Qualifiers: Diabetes mellitus assistant terminal manager insulin use: without retirement use Diabetes mellitus complication status: with kidney complications Diabetes mellitus complication detail: with chronic kidney disease Chronic kidney disease stage: on chronic dialysis Qualified Code(s): E11.22 - Type 2 diabetes mellitus with diabetic chronic kidney disease; N18.6 - End stage renal disease; Z99.2 - Dependence on renal dialysis - Plan Plan: Patient is a 65 yo female who presents with abnormal vaginal discharge is admitted with suspected severe vaginitis vs cancer: #Abnormal Vaginal Discharge -bleeding noted by senior care staff, on exam in ED by OBGYN had more purulent discharge and culture obtained -seen by OBGYN Dr. Lacy in ED, suspected uterine or vaginal carcinoma vs vaginitis initially--now most likely vaginitis 2/2 E. Coli infection -unable to tolerate vaginal speculum exam in ED -CT ab/pelv reveals stool in rectum, otherwise normal -vaginal discharge culture positive for gram neg rods E.coli -Consult OBGYN Dr. Sadler & Dr. Lacy, appreciate recommendations -will plan for 48 hours of antibiotics with coverage for vaginitis -TVUS on 06/15, tolerated well, was non-diagnostic and unable to view endometrial stripe or assess pelvic organs -plan for vaginal exam under anesthesia today with EMB and possible D&C/Hysteroscopy based on exam findings -Abx: IV flagyl and doxycycline (06/13-06/15); switched to PO SS Bactrim on 06/15 AM (will need to continue through 06/22) -Transabdominal U/S on 05/19/2020 showed anterior calcified mass in uterus, c/w uterine fibroid #Hypothyroid, subclinical -TSH 0.0046 (low) and T4 1.34 (normal) -continue to monitor #ESRD on HD - Consult Dr. Mustafa, her assistant professor of marine biology, to arrange dialysis, appreciate recs - usually gets dialysis T/Th/Sat #DM -glucose checks ACHS -continue home meds #HTN -continue home meds #Depression -continue home meds #Dementia -continue home meds Code: Full Diet: CC, Renal DVT ppx: heparin Dispo: Stable, Admitted to inpatient on telemetry unit. OBGYN consulted, appreciate recommendations, will take patient to OR this morning. Nephrology consulted to arrange dialysis while inpatient. Anticipate discharge in next 24- 48 hours. Addendum - Attending - Attending Attestation Date/Time: 06/16/20 1865 I personally evaluated the patient and discussed the management with Dr. Christianson. I agree with the History, Examination, Assessment and Plan documented above with any addition or exceptions noted below.
[2020-06-16 08:53] LABS: Anion Gap 18 mmol/L (10-20); Carbon Dioxide 22 mmol/L (23-31)
[2020-06-16 08:54] LABS: Bilirubin, Total 0.2 mg/dL (0.2-1.2)
[2020-06-16 08:57] LABS: AST (SGOT) 45 U/L (5-34)
[2020-06-16] MEDS ORDERED: Diabetic Tussin 200 MG/10 ML UDCUP PO PRN (09:01)
[2020-06-16 09:12] LABS: Hemoglobin 11.7 g/dL (12.0-16.0); Mean Corpuscular HGB CONC 30.1 g/dL (32.0-36.0); Mean Corpuscular Hemoglobin 30.7 pg (27.0-31.0); Mean Platelet Volume 8.1 fL (7.4-10.4); Platelet Count 214 thou/uL (130-400); Red Blood Cell (RBC) Count 3.79 mill/uL (4.20-5.40); White Blood Cell (WBC) Count 5.3 thou/uL (4.8-10.8)
[2020-06-16 09:38] LABS: Chloride 98 mmol/L (98-107); Potassium 4.4 mmol/L (3.5-5.1)
[2020-06-16 09:39] LABS: Calcium 8.6 mg/dL (7.8-10.44); Sodium 134 mmol/L (136-145)
[2020-06-16 09:40] LABS: Glucose 150 mg/dL (80-115)
[2020-06-16 09:43] LABS: Alkaline Phosphatase 227 U/L (40-110); Calc. Creatinine Clearance 30 mL/min (70-130); Estimated GFR-MDRD 12
[2020-06-16 09:44] LABS: BUN (Urea Nitrogen) 23 mg/dL (9.8-20.1)
[2020-06-16 09:46] LABS: ALT (SGPT) 29 U/L (8-55)
--- NOTE | 2020-06-16 10:38 | PQF ---
CLINICAL DOCUMENTATION CLARIFICATION FORM: Dear Dr. LATISHA ADKINS Date: 06-16-20 Please exercise your independent, professional judgment in responding to the clarification form. Clinical indicators are provided on the bottom of this form for your review. Please check appropriate box(es): [ ] Hemiplegia Specify: [ ] Non dominant side [ ] Dominant side Status: [ ] Complete [ ] Incomplete [ ] Paraplegia Specify: [ ] Non dominant side [ ] Dominant side Status: [ ] Complete [ ] Incomplete [ ] Quadriplegia [ ] Functional Quadriplegia (specify underlying cause) [ X ] Weakness (please specify anatomical area--lower extremities)--2/2 prior CVA Specify: [ ] Non dominant side [ ] Dominant side [ ] Other diagnosis [ ] Unable to determine In addition, please specify: Present on Admission (POA): [ X ] Yes [ ] No [ ] Unable to determine For continuity of documentation, please document condition throughout progress notes and discharge summary. Thank You. To be completed by CDI/Coding staff for physician review: CLINICAL INDICATORS - SIGNS / SYMPTOMS / LABS / RESULTS AND LOCATION IN MR: Nsg musculoskeletal assmt: Cannot stand/walk, Total assistance; SENIOR FOREMAN H&P 06-13-20: Has been bedridden for several years. She has had 2 strokes, severely impacting her ability to care for herself. RISK FACTORS / RESULTS AND LOCATION IN MR: SENIOR FOREMAN H&P 06-13-20: Has been bedridden for several years. She has had 2 strokes, severely impacting her ability to care for herself. TREATMENT / RESULTS AND LOCATION IN MR: Nsg musculoskeletal assmt: Cannot stand/walk, Total assistance CDS Signature: Pamela Colón Phone #: [phone] Date: 06-16-20 This is a permanent part of the Medical Record [facility]
--- NOTE | 2020-06-16 10:46 | PRG ---
DATE OF SERVICE: 06/16/2020 SUBJECTIVE: A 65-year-old female being seen for end-stage renal disease. The patient denied nausea, vomiting, or chest pain. OBJECTIVE: GENERAL: The patient is awake, alert. VITAL SIGNS: Afebrile, pulse 66, breathing at 16, blood pressure 113/57. HEENT: Head normocephalic and atraumatic. Eyes intact, no ulcers. Nose intact, no ulcers. Ears intact, no ulcers. NECK: Supple. No JVD. CHEST: Symmetrical and clear. CARDIOVASCULAR: Shows S1 and S2, no rub, no murmur. GASTROINTESTINAL: Abdomen is soft, bowel sounds positive. EXTREMITIES: Show no edema or ulcers. SKIN: Shows no rash or petechiae. MUSCULOSKELETAL: Shows no joint swelling or stiffness. GENITOURINARY: Shows no Melendez or CVA tenderness. NEUROLOGIC: Motor intact. Cranial nerves intact. LABORATORY DATA: Reviewed. ASSESSMENT AND PLAN: 1. Stage 6 chronic kidney disease. Continue hemodialysis. 2. Hypertension, stable. 3. Anemia, stable. 4. Medication based on GFR appropriate. Job ID: [id number]
[2020-06-16 10:55] LABS: Band 1 % (5-11); Lymphocytes 38 % (21-51); MDiff Complete? YES; Monocytes 13 % (0-10); Neutrophil 47 % (42-75); Platelet Morphology Comment Appears Adequate; Polychromasia SLIGHT = 2-3 cells (100X) (0-2/hpf)
[2020-06-16] MEDS ORDERED: Lidocaine 2% Jelly 5 ML TUBE ONE (11:18)
[2020-06-16] MEDS ORDERED: SUGAMMADEX SODIUM 200 MG/2 ML VIAL ONE (12:42)
[2020-06-16] MEDS ORDERED: Fleet Enema 133 ML BOT PR PRN (12:45)
[2020-06-16] MEDS ORDERED: Fleet Enema 133 ML BOT PR SCH (12:45)
[2020-06-16] MEDS ORDERED: Promethazine HCl 25 MG/ML VIAL SLOW IVP PRN (12:56)
[2020-06-16] MEDS ORDERED: Ondansetron HCl/PF 4 MG/2 ML Vial IVP PRN (12:56)
[2020-06-16] MEDS ORDERED: Promethazine HCl 25 MG/ML VIAL IM PRN (12:56)
[2020-06-16 13:16] LABS: Clarity Turbid (Clear); Leukocyte Large (Negative); Nitrite Negative (Negative); pH, Urine 6.5 (5.0-9.0)
[2020-06-16 13:17] LABS: Bilirubin Negative (Negative); Blood, Urine Large (Negative); Glucose, Urine (Dipstick) Negative (Negative); Ketone, Urine Negative (Negative); Protein, Urine (Dipstick) 100 mg/dL (Neg-Trace); Urobilinogen 0.2 mg/dL (Less than 2)
[2020-06-16 13:18] LABS: Bacteria/HPF 3+ HPF (None Seen); Squamous Epithelial 0-3 HPF (0-3); WBC/HPF Greater Than 50 HPF (0-3)
[2020-06-16] MEDS ORDERED: Lidocaine 1% PF 5 ML VIAL ONE (13:42)
[2020-06-16] MEDS ORDERED: EPHEDRINE 25 MG/5 ML SYRINGE ONE (13:42)
[2020-06-16] MEDS ORDERED: PROPOFOL 200 MG/20 ML VIAL ONE (13:42)
[2020-06-16] MEDS ORDERED: PHENYLEPHRINE-NS 100 MCG/ML 10 ML SYRINGE ONE (13:42)
[2020-06-16] MEDS ORDERED: Rocuronium Bromide 10 MG/ML (10ML VIAL) ONE (13:42)
[2020-06-16] MEDS ORDERED: Ondansetron PF 4 MG/2 ML Vial ONE (13:42)
[2020-06-16] MEDS ORDERED: GoLYTELY 4,000 ml Bottle PO SCH (14:00)
--- NOTE | 2020-06-16 14:40 | PDOC.BPN ---
- Brief Progress Note Encounter Date: 06/16/20 Encounter Time: 14:00 Patient seen upon arrival back to stroke unit. No complaints. Denies any abdominal pain, vaginal pain/discomfort, nausea, vomiting. States that she is hungry. Patient has had 7-8 BMs since admission. Manual disimpaction attempted at bedside. No stool in the rectal vault upon exam. Then attempted NG tube placement for administration of GoLytely but unsuccessful. Will continue with plan to administer GoLytely PO and will obtain CT Abd/Pelvis in the morning to reassess.
[2020-06-16] MEDS: Loratadine 10 MG TAB PO SCH (15:44)
[2020-06-16] MEDS: Ferrous Sulfate 325 MG TAB PO SCH (15:44)
[2020-06-16] MEDS: Sevelamer Carbonate 800 MG TAB PO SCH ×2 (15:46→21:18)
[2020-06-16] MEDS: Carvedilol 3.125 MG TAB PO SCH ×2 (15:47→21:19)
[2020-06-16] MEDS: Sulfameth/Trimethoprim SS 400-80MG TAB PO SCH ×2 (15:48→21:19)
[2020-06-16] MEDS: Amiodarone 200 MG TAB PO SCH ×2 (15:48→21:18)
[2020-06-16] MEDS: Aspirin Chewable 81 MG TAB PO SCH (15:48)
--- NOTE | 2020-06-16 17:23 | PDOC.BPN ---
- Brief Progress Note Dr Lacy and I discussed Mrs Abarca case together post-operatively this afternoon. He encountered difficulty visualizing the cervix due to rectal distention from stool. This was in spite of several bowel movements occurring since admission. We discussed the possibility of remaining stool impaction. To resolve the issue of rectal vault stool, Dr Christianson performed a deep digital rectal exam to achieve dis-impaction, however no stool was enountered in the rectal vault. We are preceding with a colon bowel prep today and overnight, with a follow up CT scan tomorrow morning to confirm clearance of stool. Thereafter remains the potential for an endometrial biopsy under anesthesia at the OBGYN Hospitalist team's discretion. We are grateful for the care and expertise of the OBGY hospitalist team.
[2020-06-16] MEDS: HumaLOG 300 UNITS/3 ML VIAL SC PRN (17:45)
[2020-06-16] MEDS: Atorvastatin Calcium 40 MG TAB PO SCH (21:18)
[2020-06-16] MEDS: Donepezil HCl 10 MG TAB PO SCH (21:18)
--- NOTE | 2020-06-17 00:52 | OP ---
DATE OF PROCEDURE: 06/16/2020 PREOPERATIVE DIAGNOSES: 1. Morbid obesity. 2. Postmenopausal bleeding. 3. End-stage renal disease, on dialysis. 4. Chronic hypertension. 5. Diabetes. POSTOPERATIVE DIAGNOSES: 1. Morbid obesity. 2. Postmenopausal bleeding. 3. End-stage renal disease, on dialysis. 4. Chronic hypertension. 5. Diabetes. 6. Fecal impaction, and aborted procedure. PROCEDURE: Exam under anesthesia, aborted endometrial biopsy. ANESTHESIA: General. ESTIMATED BLOOD LOSS: None. DESCRIPTION OF PROCEDURE: Ms. Abarca is a 65-year-old female [facility]. On arrival and on evaluation, patient was suspected to having a SEWAGE PLANT OPERATOR infection, difficult to assess whether it is endometritis or vaginitis. The patient was admitted for IV antibiotics and optimization of her overall medical health with plans for exam under anesthesia. Patient was eventually taken to the operating room, where she was placed under general anesthesia without difficulty. She was placed in dorsal lithotomy position in [facility]-cane stirrups and prepared and draped in a normal sterile fashion. Attention was placed vaginally, where patient was immediately noted to have a pyuria, as amina pus was coming from her urethra. This was collected at the time of draining her bladder and sent for evaluation. Speculum was placed and immediately noted to have difficulty reaching her cervix as the vagina pointed extremely anterior. With the lack of visualization by speculum, a bimanual exam was performed and immediately noted was a very large amount of fecal material actually deviating the uterus and cervix out of this point of accessibility bimanually. The cervix was not visualized nor palpated on the exam. At this point, the procedure was aborted and patient was extubated from general anesthesia and taken to recovery room in stable condition. Of note prior to surgery, patient was noted to have this large fecal collection and had received enemas several times by her primary team in an effort to resolve it now known without success. Primary team has been made aware and attempts will be made to do a bowel prep with the plan to return to the operating room for attempt for uterine biopsies. Job ID: [id number]
--- NOTE | 2020-06-17 06:44 | PDOC.FM ---
- Subjective Subjective: Patient seeing awake and alert in bed this morning, voices no complaints. Patient has only had about 1/4 to 1/3 of the GoLSimworxly prep. Says she has been trying to drink but it is too much. Had 1 BM since starting prep. - Objective MAR Reviewed: Yes Vital Signs & Weight: Vital Signs (12 hours) Temp Pulse Resp BP Pulse Ox 06/17/20 04:34 97.8 F 60 15 101/59 L 99 06/16/20 20:00 97.6 F 60 17 119/62 94 L Weight Admit Weight 158.757 kg Weight 158.757 kg I&O: 06/15/20 06/16/20 06/17/20 06:59 06:59 06:59 Intake Total 950 1250 1260 Output Total 100 1600 1 Balance 850 -350 1259 Result Diagrams: 06/16/20 09:00 06/16/20 08:25 Phys Exam - Physical Examination Constitutional: NAD HEENT: moist MMs, sclera anicteric Neck: no JVD, supple, full ROM Respiratory: clear to auscultation bilateral Cardiovascular: RRR, no significant murmur Gastrointestinal: soft, non-tender, positive bowel sounds rectal exam completed 06/16 reveals no stool in rectal vault Musculoskeletal: no edema, pulses present Neurological: normal sensation, moves all 4 limbs Psychiatric: normal affect Skin: no rash Dx/Plan (1) Mucopurulent vaginitis Code(s): N76.0 - ACUTE VAGINITIS Status: Acute (2) Subclinical hypothyroidism Code(s): E03.9 - HYPOTHYROIDISM, UNSPECIFIED Status: Acute (3) Type 2 diabetes mellitus Status: Acute Qualifiers: Diabetes mellitus skilled nursing insulin use: without skilled nursing use Diabetes mellitus complication status: with kidney complications Diabetes mellitus complication detail: with chronic kidney disease Chronic kidney disease stage: on chronic dialysis Qualified Code(s): E11.22 - Type 2 diabetes mellitus with diabetic chronic kidney disease; N18.6 - End stage renal disease; Z99.2 - Dependence on renal dialysis - Plan Plan: Patient is a 65 yo female who presents with abnormal vaginal discharge is admitted with suspected severe vaginitis vs cancer: #Abnormal Vaginal Discharge -bleeding noted by skilled nursing staff, on exam in ED by OBGYN had more purulent discharge and culture obtained -seen by OBGYN Dr. Lacy in ED, suspected uterine or vaginal carcinoma vs vaginitis initially--now most likely vaginitis 2/2 E. Coli infection -unable to tolerate vaginal speculum exam in ED -CT ab/pelv reveals stool in rectum, otherwise normal -vaginal discharge culture positive for gram neg rods E.coli -Consult OBGYN Dr. Sadler & Dr. Lacy, appreciate recommendations -had 48 hours of Flagyl & Doxy antibiotics coverage for vaginitis -TVUS on 06/15, tolerated well, was non-diagnostic and unable to view endometrial stripe or assess pelvic organs -Vaginal exam under anesthesia on 06/16 revealed amina pyuria, unable to visualize cervix, possible retained stool in colon disturbing vaginal anatomy, EMB was aborted -Abx: IV flagyl and doxycycline (06/13-06/15); switched to PO SS Bactrim on 06/15 AM (will need to continue through 06/22) -Transabdominal U/S on 05/19/2020 showed anterior calcified mass in uterus, c/w uterine fibroid -manual disimpaction attempted 06/16, no stool in rectal vault upon exam by myself and nursing staff -enemas given 06/13 & 06/16, started GoLytely prep on 06/16-patient has not completed this morning -repeat CT abd/pelvis this morning #Hypothyroid, subclinical -TSH 0.0046 (low) and T4 1.34 (normal) -continue to monitor #ESRD on HD - Consult Dr. Mustafa, her marketing proposal specialist, to arrange dialysis, appreciate recs - usually gets dialysis T/Th/Sat #DM -glucose checks ACHS -continue home meds #HTN -continue home meds #Depression -continue home meds #Dementia -continue home meds Code: Full Diet: CC, Renal DVT ppx: heparin Dispo: Stable, Admitted to inpatient on telemetry unit. OBGYN consulted, appreciate recommendations. Nephrology consulted to arrange dialysis while inp atient. Anticipate discharge in next 24-48 hours. Addendum - Attending - Attending Attestation Date/Time: 06/17/20 1875 I personally evaluated the patient and discussed the management with Dr. Christianson. I agree with the History, Examination, Assessment and Plan documented above with any addition or exceptions noted below.
--- NOTE | 2020-06-17 10:28 | CT ---
CT Abdomen Pelvis WO Con: 06/17/2020 10:21 AM HISTORY: Fecal impaction COMPARISON: 06/12/2020 TECHNIQUE: Multiple contiguous axial images were obtained and a CT of the abdomen and pelvis without IV contrast . Coronal and sagittal reformats were performed. FINDINGS: This examination is limited for the evaluation of solid organs and vascular structures due to the lac k of intravenous contrast. This exam is also limited given the patient's large body habitus and the patient's sides touching the CT gantry producing artifact. Lower Chest: within normal limits. Abdomen: Liver: within normal limits. Bile Ducts: Normal caliber. Gallbladder: Absent Pancreas: within normal limits. Spleen: within normal limits. Adrenals: within normal limits. Kidneys: Small and atrophic Pelvis: Reproductive Organs: No pelvic masses. Ureters: within normal limits. Bladder: within normal limits. Bowel: Normal caliber. There is a stable large amount of stool in the rectal vault. Mesenteric Lymph Nodes: No enlarged mesenteric lymph nodes. Peritoneum: No ascites or free air, no fluid collection. Vessels: Atherosclerotic calcifications in the aorta Retroperitoneum: within normal limits. Abdominal Wall: A stable fat-containing ventral hernia in the lower abdominal wall. Bones: Degenerative changes in the spine. IMPRESSION: Persistent fecal impaction
[2020-06-17] MEDS ORDERED: GoLYTELY 4,000 ml Bottle PO SCH (12:45)
--- NOTE | 2020-06-17 14:35 | PRG ---
DATE OF SERVICE: 06/17/2020 Nephrology Progress note Subjective: Patient is seen in dialysis unit. She does not have new complaints.Patient continues to have constipation. Review of systems Gen.: No fever, no chills All the 14 systems reviewed except for the ones mentioned above are negative Physical examination Vitals: Patient's blood pressure, pulse rate, respiratory rate and temperature were reviewed. Blood pressure-105/54 Pulse rate- 60 /minute Respiratory-13 /minute Oxygen saturation- 100% on room air Temperature- 97.6 F Constitutional: Morbidly obese, comfortable, not in pain; HEENT: Mucous membranes moist, no icterus Neck: Trachea midline, no lymphadenopathy Heart: Regular rate and rhythm; no murmurs Lungs: Air entry equal bilateral; no wheezes Abdomen: Soft; nontender; no guarding/tenderness/rebound Extremities: Left upper extremity AV fistula Neurological: Patient is awake, following commands Skin: No rash, no ulcers Psychological: Not agitated Labs and Imaging reviewed Hemoglobin/hematocrit 11.7/38.7 Medications review All medications reviewed; patient is on Bactrim a sevelamer Assessment and plan Stage 6 chronic kidney disease Hypertension Anemia Diabetes mellitus Patient is currently getting hemodialysis. Target 2.5-3 L UF as tolerated. Blood flow rate 400 mL/minute. Patient's hemoglobin is stable. Continue to monitor same. Patient is on iron tablets. Discussed with HERI LEAVITT
[2020-06-17] MEDS: Docusate 100 MG CAP PO SCH ×2 (16:34→20:50)
[2020-06-17] MEDS: Amiodarone 200 MG TAB PO SCH ×2 (16:34→20:50)
[2020-06-17] MEDS: Carvedilol 3.125 MG TAB PO SCH ×2 (16:34→20:51)
[2020-06-17] MEDS: Heparin 5,000 UNITS/ML VIAL SC SCH ×2 (16:34→20:50)
[2020-06-17] MEDS: Sulfameth/Trimethoprim SS 400-80MG TAB PO SCH ×2 (16:35→20:51)
[2020-06-17] MEDS: Sevelamer Carbonate 800 MG TAB PO SCH ×2 (16:35→20:51)
[2020-06-17] MEDS: Polyethylene Glycol 3350 17 GM Packet PO SCH (17:12)
[2020-06-17] MEDS: Loratadine 10 MG TAB PO SCH (17:13)
[2020-06-17] MEDS: Aspirin Chewable 81 MG TAB PO SCH (17:13)
[2020-06-17] MEDS: Ferrous Sulfate 325 MG TAB PO SCH (17:13)
[2020-06-17] MEDS: Donepezil HCl 10 MG TAB PO SCH (20:51)
[2020-06-17] MEDS: Atorvastatin Calcium 40 MG TAB PO SCH (21:24)
--- NOTE | 2020-06-18 06:59 | PDOC.FM ---
- Subjective Subjective: Patient is awake, resting in bed. Says she tried to drink GoLytely but admits to not drinking much. Has had about 1/3 intake of the prep. Per night RN she did have a large BM earlier this morning. Dr. Marion with GI was called yesterday and he advised to continue GoLytely and fleet enemas. Patient denies any abdominal pain, nausea, vomiting, chest pain, SOB, vaginal discomfort. - Objective MAR Reviewed: Yes Vital Signs & Weight: Vital Signs (12 hours) Temp Pulse Resp BP BP Pulse Ox 06/18/20 04:00 97.4 F L 64 14 114/73 97 06/18/20 00:00 97.9 F 60 16 102/48 L 100 06/17/20 20:00 97.6 F 60 13 105/54 L 105/54 L 100 Weight Admit Weight 158.757 kg Weight 158.757 kg I&O: 06/16/20 06/17/20 06/18/20 06:59 06:59 06:59 Intake Total 1250 1260 360 Output Total 1600 1 Balance -350 1259 360 Result Diagrams: 06/16/20 09:00 06/16/20 08:25 Phys Exam - Physical Examination Constitutional: NAD HEENT: moist MMs, sclera anicteric Neck: no JVD, supple Respiratory: clear to auscultation bilateral Cardiovascular: RRR Gastrointestinal: soft, no distention, positive bowel sounds morbidly obese Musculoskeletal: no edema, pulses present Neurological: moves all 4 limbs Psychiatric: normal affect Skin: no rash Dx/Plan (1) Mucopurulent vaginitis Code(s): N76.0 - ACUTE VAGINITIS Status: Acute (2) Subclinical hypothyroidism Code(s): E03.9 - HYPOTHYROIDISM, UNSPECIFIED Status: Acute (3) Type 2 diabetes mellitus Status: Acute Qualifiers: Diabetes mellitus nursing home insulin use: without terminal press operator use Diabetes mellitus complication status: with kidney complications Diabetes mellitus complication detail: with chronic kidney disease Chronic kidney disease stage: on chronic dialysis Qualified Code(s): E11.22 - Type 2 diabetes mellitus with diabetic chronic kidney disease; N18.6 - End stage renal disease; Z99.2 - Dependence on renal dialysis - Plan Plan: Patient is a 65 yo female who presents with abnormal vaginal discharge is admitted with suspected severe vaginitis vs cancer: #Abnormal Vaginal Discharge -bleeding noted by intermediate staff, on exam in ED by OBGYN had more purulent discharge and culture obtained -seen by OBGYN Dr. Lacy in ED, suspected uterine or vaginal carcinoma vs vaginitis initially--now most likely vaginitis 2/2 E. Coli infection -unable to tolerate vaginal speculum exam in ED -CT ab/pelv reveals stool in rectum, otherwise normal, repeat CT similar, has fecalith impaction but no signs of obstruction -vaginal discharge culture positive for E.coli -Consult OBGYN Dr. Sadler & Dr. Lacy, appreciate recommendations -had 48 hours of Flagyl & Doxy antibiotics coverage for vaginitis -TVUS on 06/15, tolerated well, was non-diagnostic and unable to view endometrial stripe or assess pelvic organs -Vaginal exam under anesthesia on 06/16 revealed amina pyuria, unable to visualize cervix, possible retained stool in colon disturbing vaginal anatomy, EMB was aborted -Abx: IV flagyl and doxycycline (06/13-06/15); switched to PO SS Bactrim on 06/15 AM (will need to continue through 06/22) -Transabdominal U/S on 05/19/2020 showed anterior calcified mass in uterus, c/w uterine fibroid -manual disimpaction attempted 06/16, no stool in rectal vault upon exam by myself and nursing staff -enemas given 06/13 & 06/16 & 06/17, started GoLytely prep on 06/16-patient has still not completed this morning (06/18) #Hypothyroid, subclinical -TSH 0.0046 (low) and T4 1.34 (normal) -continue to monitor #ESRD on HD - Consult Dr. Mustafa, her legal document specialist, to arrange dialysis, appreciate recs - usually gets dialysis T/Th/Sat #DM -glucose checks ACHS -continue home meds #HTN -continue home meds #Depression -continue home meds #Dementia -continue home meds Code: Full Diet: CC, Renal DVT ppx: heparin Dispo: Stable, Admitted to inpatient on telemetry unit. OBGYN consulted, appre ciate recommendations. Nephrology consulted to arrange dialysis while inpatient. Anticipate discharge in next 24-48 hours. Addendum - Attending - Attending Attestation Date/Time: 06/18/20 1129 I personally evaluated the patient and discussed the management with Dr. Christianson. I agree with the History, Examination, Assessment and Plan documented above with any addition or exceptions noted below. Dr Christianson to coordinate whether OBGYN Hospitalist expects to perform endometrial biopsy during hospitalization. I discussed the case ith Dr Obrien GI today who recommended continued laxative therapy to resolve retained stool.
[2020-06-18] MEDS: Sevelamer Carbonate 800 MG TAB PO SCH (10:27)
[2020-06-18] MEDS: Aspirin Chewable 81 MG TAB PO SCH (10:27)
[2020-06-18] MEDS: Amiodarone 200 MG TAB PO SCH (10:27)
[2020-06-18] MEDS: Docusate 100 MG CAP PO SCH (10:28)
[2020-06-18] MEDS: Carvedilol 3.125 MG TAB PO SCH (10:28)
[2020-06-18] MEDS: Ferrous Sulfate 325 MG TAB PO SCH (10:28)
[2020-06-18] MEDS: Heparin 5,000 UNITS/ML VIAL SC SCH (10:30)
[2020-06-18] MEDS: Polyethylene Glycol 3350 17 GM Packet PO SCH (10:31)
[2020-06-18] MEDS: Sulfameth/Trimethoprim SS 400-80MG TAB PO SCH (10:31)
[2020-06-18] MEDS: Loratadine 10 MG TAB PO SCH (10:31)
--- NOTE | 2020-06-18 11:45 | PDOC.BPN ---
- Brief Progress Note Encounter Date: 06/18/20 Nephrology Progress note Subjective: Patient is seen in the room. Patient had hemodialysis yesterday. She has constipation, she had 1 BM this morning. Review of systems Gen.: No fever, no chills All the 14 systems reviewed except for the ones mentioned above are negative Physical examination Vitals: Patient's blood pressure, pulse rate, respiratory rate and temperature were reviewed. Blood pressure-106/50 Pulse rate-60 /minute Respiratory- 14 /minute Oxygen saturation-% on room air Temperature- 98 F Constitutional: Morbidly obese female patient, not in pain HEENT: Mucous membranes moist, no icterus Neck: Trachea midline, no lymphadenopathy Heart: Regular rate and rhythm; no murmurs Lungs: Air entry equal bilateral; no wheezes Abdomen: Soft; non-tender; no guarding/tenderness/rebound Extremities: left upper extremity AV fistula Neurological: Patient is awake, following commands Skin: No rash, no ulcers Psychological: Not agitated Labs and Imaging reviewed CT scan of the abdomen and pelvis done yesterday showed fecal impaction Medications review All medications reviewed; including Bactrim, sevelamer Assessment and plan Stage 6 chronic kidney disease Hypertension Anemia Diabetes mellitus Patient tolerated hemodialysis yesterday. Anticipate dialysis on next Friday. Continue to monitor hemoglobin and crit and transfuse PRBCs p.r.n. target hemoglobin greater than 8. Patient is currently on iron tablets. Can hold iron tablets if patient continues to have constipation, she can have IV iron at dialysis center. Discussed with HERI
[2020-06-18 12:19] VITALS: BP 122/58; TEMP 98.1
--- NOTE | 2020-06-19 15:37 | DIS ---
DATE OF ADMISSION: 06/12/2020 DATE OF DISCHARGE: 06/18/2020 RESIDENT: Beatriz Christianson DO ADMITTING ATTENDING: Hugo Theodore MD DISCHARGE ATTENDING: Malick Barroso MD CONSULTS: 1. ENGAGEMENT SPECIALIST, Cody Sadler MD and Darrius Lacy MD. 2. GI, Dr. Marion. PROCEDURES PERFORMED: 1. Abdomen and pelvis CT on June 12, 2020: Limited study. Conspicuous rectal fecal retention. No apparent wall thickening or surrounding fat stranding. No evidence for bowel obstruction. 2. Chest x-ray on June 12, 2020: Prominence of the cardiac silhouette and possible left basilar pleural and/or parenchymal opacity. Prominence of the pulmonary vasculature. Evaluation is limited by patient body habitus. 3. Transvaginal and pelvic ultrasound on June 15, 2020: Due to body habitus, reproductive structures cannot be adequately assessed including the endometrium. Essentially nondiagnostic exam. 4. Vaginal exam under anesthesia, aborted endometrial biopsy on June 16, 2020. 5. Abdomen and pelvis CT on June 17, 2020: Persistent fecal impaction. Stable large amount of stool near rectal wall. PRIMARY DIAGNOSES: Severe vaginitis and pyuria, culture positive for Escherichia coli infection. SECONDARY DIAGNOSES: 1. Abnormal uterine bleeding. 2. Subclinical hypothyroidism. 3. End-stage renal disease, on hemodialysis. 4. Diabetes mellitus. 5. Hypertension. 6. Depression. 7. Dementia. DISCHARGE MEDICATIONS: 1. Acetaminophen 650 mg p.o. q.6 hours p.r.n. 2. Atorvastatin 40 mg p.o. at bedtime. 3. Aspirin 81 mg p.o. daily. 4. Wellbutrin 100 mg p.o. b.i.d. 5. Ferrous sulfate 325 mg p.o. daily. 6. Carvedilol 6.25 mg p.o. b.i.d. 7. Renvela 1600 mg p.o. b.i.d. 8. Levemir 6 units subcu b.i.d. 9. Cetirizine 10 mg p.o. q.a.m. 10. Bupropion 100 mg p.o. q.a.m. 11. Amiodarone 200 mg p.o. b.i.d. 12. Donepezil 10 mg p.o. q.p.m. 13. Risperidone 0.25 mg p.o. b.i.d. 14. Carvedilol 3.125 mg p.o. b.i.d. 15. Bactrim single strength one tab p.o. b.i.d. for five more days. 16. Docusate 100 mg p.o. b.i.d. 17. MiraLAX 17 g p.o. daily. 18. Lactulose 10 g p.o. b.i.d. DISCONTINUED MEDICATIONS: Eliquis 5 mg p.o. b.i.d. for acute vaginal bleeding until pyuria resolves. HISTORY OF PRESENT ILLNESS/HOSPITAL COURSE: The patient is a 65-year-old female, who presented to the emergency department on June 12, 2020, with complaint of vaginal bleeding. The patient is a resident of [facility] in [place], [place]. The patient's nurse at the [facility] noticed a moderate amount of vaginal bleeding. She was taken to see Dr. Felton at [facility]. However, she was unable to be fully evaluated in the clinic due to her morbid obesity (BMI 62). The patient was then sent to the emergency department for further evaluation. Dr. Lacy, ENGAGEMENT SPECIALIST, was consulted from the emergency room. He attempted to perform a vaginal exam in the emergency department, however, the patient did not tolerate this. During the exam, purulent discharge was noted to be coming from the vagina and urethra. This was sent for culture, which ultimately resulted positive for E coli in both the urine and vaginal cultures. In the Emergency Department, the patient was given 1 L of lactated Ringer's and diazepam. She was subsequently admitted to inpatient on the telemetry unit for abnormal uterine bleeding and severe pyuria and severe vaginitis. Plan was further discussed with ENGAGEMENT SPECIALIST, Dr. Sadler. He and Dr. Lacy recommended for 48 hours of antibiotic coverage with IV Flagyl and doxycycline for the vaginitis. Antibiotics were continued until June 15, after which they were transitioned to p.o. single-strength Bactrim which will need a full 10-day course (approximately ending on June 22). The patient's transabdominal ultrasound from May 19, 2020, was reviewed by Dr. Sadler, this showed an anterior calcified mass in the uterus, which was felt to be consistent with uterine fibroid. Transvaginal ultrasound was repeated on June 15 and was essentially nondiagnostic, unable to assess the endometrial stripe or pelvic organ due to body habitus. The patient was taken to the OR and placed under general anesthesia on June 16. A vaginal exam was performed by Dr. Lacy and this revealed amina pyuria. Dr. Lacy was unable to visualize the cervix with retained stool in the colon that had disturbed the vaginal anatomy. Endometrial biopsy procedure was aborted due to being unable to visualize the cervix. A manual disimpaction was attempted on June 16 at bedside, however, there was no stool palpated within the rectal vault. The patient had Fleet enema given on June 13, June 16, June 17. She was started on colonoscopy GoLYTELY preparation on June 16, however, the patient poorly drinks a prep and by June 18 had about 1/3 of the total prep. At this point, it was discussed between Dr. Lacy, ENGAGEMENT SPECIALIST and the patient's PCP, Dr. Buenrostro, about a further plan to continue to monitor the patient's fecalith and further bowel preparation. The patient will need to complete course of antibiotics to resolve the pyuria and vaginitis. This abnormal uterine bleeding continues after this resolves, then the patient will need to follow up in approximately one month with Dr. Lacy for planned endometrial biopsy, which will likely need to be performed under general anesthesia. We will also have to ensure that there is no retained stool in the patient's colon prior to performing this procedure. Additionally should note that the patient had subclinical hypothyroidism with initial TSH of 0.0046, but a normal T4 level of 1.34. The patient also had Dr. Mustafa, Nephrology consulted during this hospitalization to arrange dialysis which was performed usually on Tuesdays, , and Saturdays. The patient was discharged back to [facility] in stable condition on the afternoon of June 18, 2020. DISPOSITION: Stable. DISCHARGE INSTRUCTIONS: 1. Location: [facility]. 2. Diet: Diabetic, renal, heart healthy. 3. Activity: As tolerated, will require assistance with transition due to lower extremity weakness. 4. Followup: Follow up with PCP, Dr. Buenrostro, in one day. Follow up with ENGAGEMENT SPECIALIST in one month after acute medical issues resolve. Job ID: [id number]
== END 2020-06-18 18:08 | DRG 757 ==
LOC: ERS 14:26 → ERHOLD 23:02 → 2SE 06-13 01:10
PROVIDERS: ADMIT Family Medicine; ATTEND Family Medicine
PROC: 5A1D70Z Performance of Urinary Filtration, Intermittent, Less than 6 Hours Per Day (ICD-10-PCS; 2020-06-13)
PROC: 0T9B7ZZ Drainage of Bladder, Via Natural or Artificial Opening (ICD-10-PCS; principal; 2020-06-16)
DX: N76.0 Acute vaginitis (principal); N18.6 End stage renal disease; I12.0 Hypertensive chronic kidney disease with stage 5 chronic kidney disease or end stage renal disease; Z68.43 Body mass index [BMI] 50.0-59.9, adult; G82.20 Paraplegia, unspecified; I69.365 Other paralytic syndrome following cerebral infarction, bilateral; Z20.828 Contact with and (suspected) exposure to other viral communicable diseases; F32.9 Major depressive disorder, single episode, unspecified; E11.22 Type 2 diabetes mellitus with diabetic chronic kidney disease; F03.90 Unspecified dementia, unspecified severity, without behavioral disturbance, psychotic disturbance, mood disturbance, and anxiety; E66.01 Morbid (severe) obesity due to excess calories; E03.9 Hypothyroidism, unspecified; D63.1 Anemia in chronic kidney disease; B96.20 Unspecified Escherichia coli [E. coli] as the cause of diseases classified elsewhere; D25.9 Leiomyoma of uterus, unspecified; N95.0 Postmenopausal bleeding; K56.41 Fecal impaction; Z79.899 Other long term (current) drug therapy; Z79.82 Long term (current) use of aspirin; Z79.01 Long term (current) use of anticoagulants; Z79.4 Long term (current) use of insulin; Z99.2 Dependence on renal dialysis
CPT/HCPCS: 36415; 36416; 36556; 71045; 74176; 74177; 76856; 80053; 81001; 82550; 83036; 83605; 84439; 84443; 85025; 87070; 87077; 87086; 87186; 87340; 87635; 90935; 93005; 96365; G0257; J1644; J2001; J2250; J2405; J2704; J3010; J3490; Q9967; U0003

== ENCOUNTER 2021-03-15 16:20 | Emergency (ER) | payer MEDICARE, MEDICAID ==
[2021-03-15 17:04] LABS: #Eosinphils 0.1 thou/uL (0.0-0.7); #Lymphocytes 1.4 thou/uL (1.20-3.40); #Monocytes 0.8 thou/uL (0.11-0.59); #Neutrophils 4.3 thou/uL (1.40-6.50); %Basophils 0.5 % (0.0-1.0); %Eosinophils 0.9 % (0.0-10.0); %Lymphocytes 21.1 % (21.0-51.0); %Monocytes 12.1 % (0.0-10.0); %Neutrophils 65.4 % (42.0-75.0); Hemoglobin 11.2 g/dL (12.0-16.0); Mean Corpuscular HGB CONC 30.9 g/dL (32.0-36.0); Mean Corpuscular Hemoglobin 31.3 pg (27.0-31.0); Mean Platelet Volume 8.9 fL (7.4-10.4); Platelet Count 191 thou/uL (130-400); RBC Distribution Width 14.1 % (11.5-14.5); Red Blood Cell (RBC) Count 3.58 mill/uL (4.20-5.40); White Blood Cell (WBC) Count 6.5 thou/uL (4.8-10.8)
[2021-03-15 17:37] LABS: ALT (SGPT) 19 U/L (8-55); AST (SGOT) 26 U/L (5-34); Albumin 3.2 g/dL (3.4-4.8); Alkaline Phosphatase 276 U/L (40-110); Anion Gap 14 mmol/L (10-20); BUN (Urea Nitrogen) 26 mg/dL (9.8-20.1); Bilirubin, Total 0.4 mg/dL (0.2-1.2); Calc. Creatinine Clearance 0 mL/min (70-130); Calcium 8.9 mg/dL (7.8-10.44); Carbon Dioxide 26 mmol/L (23-31); Chloride 100 mmol/L (98-107); Globulin 4.7 g/dL (2.4-3.5); Glucose 106 mg/dL (80-115); Potassium 4.9 mmol/L (3.5-5.1); Protein, Total 7.9 g/dL (5.8-8.1); Sodium 135 mmol/L (136-145)
[2021-03-15 17:55] LABS: Bilirubin Negative (Negative); Clarity Extra Turbid (Clear); Glucose, Urine (Dipstick) Normal (Negative); Ketone, Urine Negative (Negative); Leukocyte 500 Leu/uL (Negative); Nitrite Negative (Negative); Protein, Urine (Dipstick) 100 mg/dL (Neg-Trace); Specific Gravity, Urine 1.023 (1.002-1.036); Urobilinogen Normal mg/dL (Less than 2); WBC/HPF Greater than 50 HPF (0-3)
[2021-03-15 17:59] LABS: Bacteria/HPF 4+ HPF (None Seen); Blood, Urine 2+ (Negative); RBC/HPF 21-50 HPF (0-3)
[2021-03-15] MEDS ORDERED: cefTRIAXone\\ROCEPHIN 1 GM VIAL ONE (19:03)
== END 2021-03-15 20:53 ==
LOC: ERS 16:20
DX: N39.0 Urinary tract infection, site not specified (principal); M19.012 Primary osteoarthritis, left shoulder; I13.2 Hypertensive heart and chronic kidney disease with heart failure and with stage 5 chronic kidney disease, or end stage renal disease; I50.9 Heart failure, unspecified; N18.6 End stage renal disease; D63.1 Anemia in chronic kidney disease; E11.22 Type 2 diabetes mellitus with diabetic chronic kidney disease; I25.10 Atherosclerotic heart disease of native coronary artery without angina pectoris; E66.01 Morbid (severe) obesity due to excess calories; F03.90 Unspecified dementia, unspecified severity, without behavioral disturbance, psychotic disturbance, mood disturbance, and anxiety; E78.5 Hyperlipidemia, unspecified; K21.9 Gastro-esophageal reflux disease without esophagitis; Z87.01 Personal history of pneumonia (recurrent); Z86.73 Personal history of transient ischemic attack (TIA), and cerebral infarction without residual deficits
CPT/HCPCS: 36415; 51701; 71045; 80053; 81003; 81015; 83605; 85025; 87077; 87086; 87186; 93005; 96365; 96366; J0696

== ENCOUNTER 2021-05-23 11:29 | Observation (INO) | payer MEDICARE, MEDICAID ==
[2021-05-23 12:15] LABS: #Eosinphils 0.1 thou/uL (0.0-0.7); #Lymphocytes 1.9 thou/uL (1.20-3.40); #Monocytes 0.6 thou/uL (0.11-0.59); #Neutrophils 4.5 thou/uL (1.40-6.50); %Basophils 0.1 % (0.0-1.0); %Eosinophils 1.4 % (0.0-10.0); %Lymphocytes 26.4 % (21.0-51.0); %Monocytes 8.9 % (0.0-10.0); %Neutrophils 63.2 % (42.0-75.0); Hemoglobin 12.5 g/dL (12.0-16.0); Mean Corpuscular HGB CONC 30.6 g/dL (32.0-36.0); Mean Corpuscular Hemoglobin 30.8 pg (27.0-31.0); Platelet Count 206 thou/uL (130-400); RBC Distribution Width 14.1 % (11.5-14.5); Red Blood Cell (RBC) Count 4.05 mill/uL (4.20-5.40); White Blood Cell (WBC) Count 7.2 thou/uL (4.8-10.8)
[2021-05-23] MEDS ORDERED: Furosemide 40 MG/4 ML VIAL ONE (12:15)
[2021-05-23] MEDS ORDERED: Furosemide 20 MG/2 ML VIAL ONE (12:15)
[2021-05-23 12:39] LABS: ALT (SGPT) 20 U/L (8-55); AST (SGOT) 21 U/L (5-34); Albumin 3.4 g/dL (3.4-4.8); Alkaline Phosphatase 248 U/L (40-110); Anion Gap 19 mmol/L (10-20); BUN (Urea Nitrogen) 111 mg/dL (9.8-20.1); Bilirubin, Total 0.5 mg/dL (0.2-1.2); Calc. Creatinine Clearance 0 mL/min (70-130); Calcium 9.2 mg/dL (7.8-10.44); Carbon Dioxide 22 mmol/L (23-31); Chloride 96 mmol/L (98-107); Globulin 4.1 g/dL (2.4-3.5); Glucose 162 mg/dL (80-115); Magnesium 3.5 mg/dL (1.6-2.6); Potassium 5.5 mmol/L (3.5-5.1); Protein, Total 7.5 g/dL (5.8-8.1); Sodium 131 mmol/L (136-145)
[2021-05-23 13:09] LABS: CKMB 1.9 ng/mL (0-6.6)
[2021-05-23] MEDS ORDERED: Atropine Sulfate 1 mg/10 ml Syringe ONE ×3 (14:12→14:20)
[2021-05-23] MEDS ORDERED: Dextrose 50% Abboject 50 ML SYRINGE SLOW IVP PRN (15:09)
[2021-05-23] MEDS ORDERED: Dextrose 5% in Water 1,000 ML IV PRN (15:09)
[2021-05-23] MEDS ORDERED: Ondansetron ODT 4 MG TAB PO PRN (15:16)
[2021-05-23] MEDS ORDERED: HumaLOG 300 UNITS/3 ML VIAL SC PRN (15:16)
[2021-05-23] MEDS ORDERED: Acetaminophen 325 MG TAB PO PRN (15:16)
[2021-05-23 15:56] LABS: Troponin I 0.043 ng/mL (< 0.028)
[2021-05-23 17:09] LABS: SARS-CoV-2 NAA Rapid Test Not Detected (NotDetected)
[2021-05-23] MEDS ORDERED: hydrALAZINE 20 MG/ML VIAL SLOW IVP PRN (17:35)
[2021-05-23] MEDS ORDERED: Polyethylene Glycol 3350 17 GM Packet PO PRN (17:52)
[2021-05-23 21:21] LABS: Troponin I 0.043 ng/mL (< 0.028)
[2021-05-23] MEDS: Heparin 5,000 UNITS/ML VIAL SC SCH (23:22)
[2021-05-24 03:45] VITALS: BMI 61.3
[2021-05-24 04:34] LABS: #Eosinphils 0.1 thou/uL (0.0-0.7); #Lymphocytes 1.3 thou/uL (1.20-3.40); #Monocytes 0.5 thou/uL (0.11-0.59); #Neutrophils 3.6 thou/uL (1.40-6.50); %Eosinophils 1.2 % (0.0-10.0); %Lymphocytes 23.6 % (21.0-51.0); %Monocytes 9.9 % (0.0-10.0); %Neutrophils 65.3 % (42.0-75.0); Mean Corpuscular HGB CONC 30.3 g/dL (32.0-36.0); Mean Corpuscular Hemoglobin 30.6 pg (27.0-31.0); Mean Platelet Volume 9.1 fL (7.4-10.4); Platelet Count 175 thou/uL (130-400); RBC Distribution Width 14.1 % (11.5-14.5); Red Blood Cell (RBC) Count 3.93 mill/uL (4.20-5.40); White Blood Cell (WBC) Count 5.5 thou/uL (4.8-10.8)
[2021-05-24 04:57] LABS: Anion Gap 15 mmol/L (10-20); BUN (Urea Nitrogen) 62 mg/dL (9.8-20.1); Calc. Creatinine Clearance 21 mL/min (70-130); Calcium 8.9 mg/dL (7.8-10.44); Carbon Dioxide 27 mmol/L (23-31); Chloride 98 mmol/L (98-107); Glucose 131 mg/dL (80-115); Potassium 4.4 mmol/L (3.5-5.1); Sodium 136 mmol/L (136-145)
[2021-05-24 08:08] LABS: Magnesium 2.8 mg/dL (1.6-2.6)
[2021-05-24] MEDS: Heparin 5,000 UNITS/ML VIAL SC SCH ×2 (09:26→15:11)
[2021-05-24 16:26] VITALS: BP 133/72; TEMP 97.3
== END 2021-05-24 17:00 ==
LOC: ERS 11:29 → ERHOLD 15:00 → 2NO 18:19
PROVIDERS: ADMIT Emergency Medicine; ATTEND Emergency Medicine
DX: I95.9 Hypotension, unspecified (principal); R00.1 Bradycardia, unspecified; I13.2 Hypertensive heart and chronic kidney disease with heart failure and with stage 5 chronic kidney disease, or end stage renal disease; E11.22 Type 2 diabetes mellitus with diabetic chronic kidney disease; N18.6 End stage renal disease; I50.9 Heart failure, unspecified; D63.1 Anemia in chronic kidney disease; E78.5 Hyperlipidemia, unspecified; F03.90 Unspecified dementia, unspecified severity, without behavioral disturbance, psychotic disturbance, mood disturbance, and anxiety; I25.10 Atherosclerotic heart disease of native coronary artery without angina pectoris; K21.9 Gastro-esophageal reflux disease without esophagitis; K59.00 Constipation, unspecified; I44.0 Atrioventricular block, first degree; I45.10 Unspecified right bundle-branch block; E87.5 Hyperkalemia; E87.1 Hypo-osmolality and hyponatremia; E11.10 Type 2 diabetes mellitus with ketoacidosis without coma; E88.09 Other disorders of plasma-protein metabolism, not elsewhere classified; I69.359 Hemiplegia and hemiparesis following cerebral infarction affecting unspecified side; I25.2 Old myocardial infarction; E66.01 Morbid (severe) obesity due to excess calories; Z68.44 Body mass index [BMI] 60.0-69.9, adult; Z79.4 Long term (current) use of insulin; Z79.82 Long term (current) use of aspirin; Z79.899 Other long term (current) drug therapy; Z99.2 Dependence on renal dialysis; Z20.822 Contact with and (suspected) exposure to COVID-19
CPT/HCPCS: 71045; 80048; 80053; 82553; 82962 ×2; 83605; 83735 ×2; 84484 ×2; 85025 ×2; 93005; 96374; 96375; 99285; G0378 ×3; U0002; 36415; 36416; 90935; G0257; J0461; J1644; J1940

== ENCOUNTER 2021-11-22 11:38 | Emergency (ER) | payer MEDICARE, MEDICAID ==
[2021-11-22 14:26] LABS: ALT (SGPT) 11 U/L (8-55); AST (SGOT) 16 U/L (5-34); Albumin 3.3 g/dL (3.4-4.8); Alkaline Phosphatase 189 U/L (40-110); Anion Gap 17 mmol/L (10-20); BUN (Urea Nitrogen) 86 mg/dL (9.8-20.1); Bilirubin, Total 0.4 mg/dL (0.2-1.2); Calc. Creatinine Clearance 0 mL/min (70-130); Calcium 9.8 mg/dL (7.8-10.44); Carbon Dioxide 26 mmol/L (23-31); Chloride 100 mmol/L (98-107); Globulin 4.1 g/dL (2.4-3.5); Glucose 104 mg/dL (80-115); Potassium 4.7 mmol/L (3.5-5.1); Protein, Total 7.4 g/dL (5.8-8.1); Sodium 138 mmol/L (136-145)
== END 2021-11-22 12:56 ==
LOC: ERS 11:38
DX: L29.9 Pruritus, unspecified (principal); I13.2 Hypertensive heart and chronic kidney disease with heart failure and with stage 5 chronic kidney disease, or end stage renal disease; E11.22 Type 2 diabetes mellitus with diabetic chronic kidney disease; N18.6 End stage renal disease; I50.9 Heart failure, unspecified; K21.9 Gastro-esophageal reflux disease without esophagitis; I25.10 Atherosclerotic heart disease of native coronary artery without angina pectoris; D64.9 Anemia, unspecified; E66.01 Morbid (severe) obesity due to excess calories; F03.90 Unspecified dementia, unspecified severity, without behavioral disturbance, psychotic disturbance, mood disturbance, and anxiety; I69.959 Hemiplegia and hemiparesis following unspecified cerebrovascular disease affecting unspecified side; Z68.45 Body mass index [BMI] 70 or greater, adult; Z79.82 Long term (current) use of aspirin; Z79.899 Other long term (current) drug therapy
CPT/HCPCS: 36415; 80053; 99283

== ENCOUNTER 2022-11-13 12:30 | Emergency (ER) | payer MEDICARE, OTHER ==
[2022-11-13 13:11] LABS: #Basophils 0.1 thou/uL (0.0-0.2); #Eosinphils 0.1 thou/uL (0.0-0.7); #Lymphocytes 1.8 thou/uL (1.20-3.40); #Monocytes 0.8 thou/uL (0.11-0.59); #Neutrophils 4.3 thou/uL (1.40-6.50); %Basophils 0.8 % (0.0-1.0); %Eosinophils 2.1 % (0.0-10.0); %Lymphocytes 25.6 % (21.0-51.0); %Monocytes 11.5 % (0.0-10.0); Hemoglobin 13.3 g/dL (12.0-16.0); Mean Corpuscular HGB CONC 30.6 g/dL (32.0-36.0); Mean Corpuscular Hemoglobin 31.2 pg (27.0-31.0); Mean Platelet Volume 8.6 fL (7.4-10.4); Platelet Count 237 10x3/uL (130-400); Red Blood Cell (RBC) Count 4.25 mill/uL (4.20-5.40); White Blood Cell (WBC) Count 7.1 10x3/uL (4.8-10.8)
[2022-11-13 13:29] LABS: ALT (SGPT) 22 U/L (8-55); AST (SGOT) 26 U/L (5-34); Albumin 3.4 g/dL (3.4-4.8); Alkaline Phosphatase 279 U/L (40-110); Anion Gap 14 mmol/L (10-20); BUN (Urea Nitrogen) 79 mg/dL (9.8-20.1); Bilirubin, Total 0.3 mg/dL (0.2-1.2); Calc. Creatinine Clearance 0 mL/min (70-130); Calcium 9.1 mg/dL (7.8-10.44); Carbon Dioxide 28 mmol/L (23-31); Chloride 99 mmol/L (98-107); Estimated GFR 7; Globulin 4.6 g/dL (2.4-3.5); Glucose 153 mg/dL (80-115); Potassium 4.8 mmol/L (3.5-5.1); Sodium 136 mmol/L (136-145)
== END 2022-11-13 18:19 | disposition home or self-care (01) ==
LOC: ERS 12:30
DX: I82.612 Acute embolism and thrombosis of superficial veins of left upper extremity (principal); E11.22 Type 2 diabetes mellitus with diabetic chronic kidney disease; N18.6 End stage renal disease; I12.0 Hypertensive chronic kidney disease with stage 5 chronic kidney disease or end stage renal disease; E78.5 Hyperlipidemia, unspecified; K21.9 Gastro-esophageal reflux disease without esophagitis; Z99.2 Dependence on renal dialysis; Z79.82 Long term (current) use of aspirin; Z79.4 Long term (current) use of insulin
CPT/HCPCS: 80053; 83605; 85025

== ENCOUNTER 2025-06-06 21:08 | Inpatient (IN) | payer MEDICARE, MEDICAID ==
[2025-06-06] MEDS ORDERED: Dextrose 50% Abboject 50 ML SYRINGE SLOW IVP PRN (22:40)
[2025-06-06] MEDS ORDERED: Glucagon 1 MG/ML KIT IM PRN (22:40)
[2025-06-06] MEDS ORDERED: Pantoprazole 40 MG DR.TAB PO PRN (23:42)
[2025-06-06 23:44] VITALS: BMI 47.9
[2025-06-07 01:28] LABS: Influenza A by NAA Not Detected (NotDetected); Influenza B by NAA Not Detected (NotDetected); SARS-CoV-2 NAA Rapid Test Not Detected (NotDetected)
[2025-06-07 04:40] LABS: ALT (SGPT) 44 U/L (Less than 34); AST (SGOT) 56 U/L (11-34); Albumin 2.7 g/dL (3.1-4.5); Alkaline Phosphatase 228 U/L (40-110); Anion Gap 19 mmol/L (10-20); BUN (Urea Nitrogen) 89 mg/dL (9.8-20.1); Bilirubin, Total 0.4 mg/dL (0.3-1.2); Calc. Creatinine Clearance 14 mL/min (70-130); Calcium 9.2 mg/dL (7.8-10.44); Carbon Dioxide 23 mmol/L (23-31); Chloride 106 mmol/L (98-107); Globulin 4.3 g/dL (2.4-3.5); Glucose 99 mg/dL (83-110); Potassium 5.7 mmol/L (3.5-5.1); Sodium 142 mmol/L (136-145)
[2025-06-07 04:53] LABS: #Basophils 0.04 10x3/uL (0.0-0.2); #Eosinophils Less than 0.03 10x3/uL (0.0-0.7); #Monocytes 2.02 10x3/uL (0.11-0.59); #Neutrophils 16.50 10x3/uL (1.40-6.50); %Basophils 0.2 % (0.0-1.0); %Eosinophils 0.0 % (0.0-10.0); %Lymphocytes 4.2 % (21.0-51.0); %Monocytes 10.2 % (0.0-10.0); %Neutrophils 83.5 % (42.0-75.0); Hematocrit 38.4 % (36.0-47.0); Hemoglobin 10.9 g/dL (12.0-16.0); Mean Corpuscular Hemoglobin 28.8 pg (27.0-31.0); Mean Corpuscular Volume 101.3 fL (78.0-98.0); Platelet Count 134 10x3/uL (130-400); Red Blood Cell (RBC) Count 3.79 mill/uL (4.20-5.40); White Blood Cell (WBC) Count 19.76 10x3/uL (4.8-10.8)
[2025-06-07 05:34] LABS: Burr Cells SLIGHT = 2-5 cells HPF (0-1); Platelet Adequacy Comment Platelets Normal
[2025-06-07] MEDS ORDERED: Heparin 10,000 UNITS/ 10 ML VIAL SLOW IVP SCH (07:00)
[2025-06-07] MEDS ORDERED: Vancomycin Dialysis Sliding Scale (Wt > 99) FS SCH (07:30)
[2025-06-07 07:55] LABS: HBSAB Concentration Less than 8.00 mIU/mL; Hep B Core Total Ab NONREACTIVE (NonReactive); Hep B Core Total Index 0.16 S/CO (0-0.79); Hep B Surf Ag NONREACTIVE S/CO (NonReactive); Hep C IgG Ab NONREACTIVE S/CO (NonReactive); Hep C Index 0.12 S/CO (0-0.79)
[2025-06-07] MEDS: Insulin Glargine 30 UNITS/0.3 ML VIAL SC SCH (09:00)
[2025-06-07] MEDS: Lactulose 20 GM (30 mL) UDCUP PO SCH (09:00)
[2025-06-07] MEDS: Heparin 5,000 UNITS/ML VIAL SC SCH (09:00)
[2025-06-07] MEDS: Ferrous Sulfate 325 MG TAB PO SCH (09:00)
[2025-06-07] MEDS: Polyvinyl Alcohol 1.4%/Povidone 0.6% Opth Drops EA EYE SCH (09:00)
[2025-06-07] MEDS: risperiDONE 0.25 MG TAB PO SCH (09:00)
[2025-06-07] MEDS ORDERED: Amiodarone 200 MG TAB PO SCH ×2 (10:45→21:00)
[2025-06-07] MEDS: Sertraline 25 MG TAB PO SCH (11:14)
[2025-06-07] MEDS: VANCOMYCIN 2 GRAM/400 ML Premix BAG IVPB SCH (12:07)
[2025-06-07] MEDS: Artificial Tear Ophth Sol 15 ML BOT EA EYE SCH (16:05)
[2025-06-07 18:30] LABS: Anion Gap 16 mmol/L (10-20); BUN (Urea Nitrogen) 44 mg/dL (9.8-20.1); Calc. Creatinine Clearance 23 mL/min (70-130); Calcium 9.4 mg/dL (7.8-10.44); Carbon Dioxide 23 mmol/L (23-31); Chloride 102 mmol/L (98-107); Glucose 93 mg/dL (83-110); Potassium 4.4 mmol/L (3.5-5.1); Sodium 137 mmol/L (136-145)
[2025-06-08 03:48] LABS: #Basophils Less than 0.03 10x3/uL (0.0-0.2); #Eosinophils 0.09 10x3/uL (0.0-0.7); #Monocytes 1.30 10x3/uL (0.11-0.59); #Neutrophils 12.47 10x3/uL (1.40-6.50); %Basophils 0.1 % (0.0-1.0); %Eosinophils 0.6 % (0.0-10.0); %Lymphocytes 3.7 % (21.0-51.0); %Monocytes 9.0 % (0.0-10.0); %Neutrophils 86.3 % (42.0-75.0); Hematocrit 37.3 % (36.0-47.0); Hemoglobin 11.0 g/dL (12.0-16.0); Mean Corpuscular Hemoglobin 29.6 pg (27.0-31.0); Mean Corpuscular Volume 100.3 fL (78.0-98.0); Platelet Count 147 10x3/uL (130-400); Red Blood Cell (RBC) Count 3.72 mill/uL (4.20-5.40); White Blood Cell (WBC) Count 14.47 10x3/uL (4.8-10.8)
[2025-06-08 04:15] LABS: ALT (SGPT) 34 U/L (Less than 34); AST (SGOT) 30 U/L (11-34); Albumin 2.5 g/dL (3.1-4.5); Alkaline Phosphatase 209 U/L (40-110); Anion Gap 17 mmol/L (10-20); BUN (Urea Nitrogen) 53 mg/dL (9.8-20.1); Bilirubin, Total 0.4 mg/dL (0.3-1.2); Calc. Creatinine Clearance 20 mL/min (70-130); Calcium 9.2 mg/dL (7.8-10.44); Carbon Dioxide 22 mmol/L (23-31); Chloride 101 mmol/L (98-107); Globulin 4.7 g/dL (2.4-3.5); Glucose 85 mg/dL (83-110); Potassium 4.7 mmol/L (3.5-5.1); Sodium 135 mmol/L (136-145)
[2025-06-08] MEDS ORDERED: CEFAZOLIN 1 GM VIAL SLOW IVP SCH ×3 (06:22→18:00)
[2025-06-08] MEDS ORDERED: Amiodarone 200 MG TAB PO SCH (09:00)
[2025-06-08] MEDS: Aspirin 81 mg Enteric Coated Tablet PO SCH (11:07)
[2025-06-08] MEDS: Amiodarone 200 MG TAB PO SCH (11:08)
[2025-06-08] MEDS ORDERED: Acetaminophen 325 MG TAB PO PRN (12:25)
[2025-06-08] MEDS: risperiDONE 0.25 MG TAB PO SCH (23:57)
[2025-06-08] MEDS: Lactulose 20 GM (30 mL) UDCUP PO SCH (23:58)
[2025-06-09 04:51] LABS: ALT (SGPT) 23 U/L (Less than 34); AST (SGOT) 19 U/L (11-34); Albumin 2.5 g/dL (3.1-4.5); Alkaline Phosphatase 187 U/L (40-110); Anion Gap 14 mmol/L (10-20); BUN (Urea Nitrogen) 32 mg/dL (9.8-20.1); Bilirubin, Total 0.3 mg/dL (0.3-1.2); Calc. Creatinine Clearance 29 mL/min (70-130); Calcium 8.9 mg/dL (7.8-10.44); Carbon Dioxide 24 mmol/L (23-31); Chloride 99 mmol/L (98-107); Globulin 4.4 g/dL (2.4-3.5); Glucose 72 mg/dL (83-110); Potassium 3.2 mmol/L (3.5-5.1); Sodium 134 mmol/L (136-145)
[2025-06-09 04:53] LABS: Hematocrit 35.2 % (36.0-47.0); Hemoglobin 10.1 g/dL (12.0-16.0); Mean Corpuscular Hemoglobin 28.5 pg (27.0-31.0); Mean Corpuscular Volume 99.2 fL (78.0-98.0); Platelet Count 105 10x3/uL (130-400); Red Blood Cell (RBC) Count 3.55 mill/uL (4.20-5.40); White Blood Cell (WBC) Count 10.11 10x3/uL (4.8-10.8)
[2025-06-09 05:39] LABS: Nucleated RBC (Manual Ct) 3 % (0); Platelet Adequacy Comment Platelets Decreased; Schistocytes SLIGHT = 2-5 cells HPF (0-1); Smudge Cells 4.9 %
[2025-06-09] MEDS: Sertraline 100 MG TAB PO SCH (10:22)
[2025-06-09] MEDS: Pantoprazole 40 MG DR.TAB PO SCH (10:23)
[2025-06-09] MEDS: Ferrous Sulfate 325 MG TAB PO SCH (11:11)
[2025-06-09] MEDS: Guaifenesin DM 100-10/5 ML UDCUP PO PRN (13:07)
[2025-06-10 04:19] LABS: #Basophils Less than 0.03 10x3/uL (0.0-0.2); #Eosinophils 0.20 10x3/uL (0.0-0.7); #Monocytes 0.87 10x3/uL (0.11-0.59); #Neutrophils 6.15 10x3/uL (1.40-6.50); %Basophils 0.1 % (0.0-1.0); %Eosinophils 2.6 % (0.0-10.0); %Lymphocytes 6.2 % (21.0-51.0); %Monocytes 11.2 % (0.0-10.0); %Neutrophils 79.4 % (42.0-75.0); Hematocrit 33.5 % (36.0-47.0); Hemoglobin 9.9 g/dL (12.0-16.0); Mean Corpuscular Hemoglobin 28.8 pg (27.0-31.0); Mean Corpuscular Volume 97.4 fL (78.0-98.0); Platelet Count 112 10x3/uL (130-400); Red Blood Cell (RBC) Count 3.44 mill/uL (4.20-5.40); White Blood Cell (WBC) Count 7.75 10x3/uL (4.8-10.8)
[2025-06-10 04:29] LABS: ALT (SGPT) 12 U/L (Less than 34); AST (SGOT) 14 U/L (11-34); Albumin 2.2 g/dL (3.1-4.5); Alkaline Phosphatase 163 U/L (40-110); Anion Gap 15 mmol/L (10-20); BUN (Urea Nitrogen) 37 mg/dL (9.8-20.1); Bilirubin, Total 0.3 mg/dL (0.3-1.2); Calc. Creatinine Clearance 21 mL/min (70-130); Calcium 8.9 mg/dL (7.8-10.44); Carbon Dioxide 21 mmol/L (23-31); Chloride 101 mmol/L (98-107); Globulin 4.4 g/dL (2.4-3.5); Glucose 91 mg/dL (83-110); Potassium 4.6 mmol/L (3.5-5.1); Sodium 132 mmol/L (136-145)
[2025-06-10] MEDS: EPOETIN ALFA-EPBX (ESRD) 10,000 UNITS/ML VIAL SC SCH (17:01)
[2025-06-11 04:44] LABS: #Basophils Less than 0.03 10x3/uL (0.0-0.2); #Eosinophils 0.20 10x3/uL (0.0-0.7); #Monocytes 1.07 10x3/uL (0.11-0.59); #Neutrophils 5.75 10x3/uL (1.40-6.50); %Basophils 0.3 % (0.0-1.0); %Eosinophils 2.6 % (0.0-10.0); %Lymphocytes 7.1 % (21.0-51.0); %Monocytes 14.0 % (0.0-10.0); %Neutrophils 75.3 % (42.0-75.0); Hematocrit 32.3 % (36.0-47.0); Hemoglobin 9.1 g/dL (12.0-16.0); Mean Corpuscular Hemoglobin 28.1 pg (27.0-31.0); Mean Corpuscular Volume 99.7 fL (78.0-98.0); Platelet Count 154 10x3/uL (130-400); Red Blood Cell (RBC) Count 3.24 mill/uL (4.20-5.40); White Blood Cell (WBC) Count 7.63 10x3/uL (4.8-10.8)
[2025-06-11 05:00] LABS: ALT (SGPT) Less than 7 U/L (Less than 34); AST (SGOT) 11 U/L (11-34); Albumin 2.2 g/dL (3.1-4.5); Alkaline Phosphatase 164 U/L (40-110); Anion Gap 10 mmol/L (10-20); BUN (Urea Nitrogen) 23 mg/dL (9.8-20.1); Bilirubin, Total 0.2 mg/dL (0.3-1.2); Calc. Creatinine Clearance 29 mL/min (70-130); Calcium 8.8 mg/dL (7.8-10.44); Carbon Dioxide 24 mmol/L (23-31); Chloride 99 mmol/L (98-107); Globulin 4.5 g/dL (2.4-3.5); Glucose 123 mg/dL (83-110); Potassium 4.2 mmol/L (3.5-5.1); Sodium 129 mmol/L (136-145)
[2025-06-12 04:21] LABS: #Basophils Less than 0.03 10x3/uL (0.0-0.2); #Eosinophils 0.26 10x3/uL (0.0-0.7); #Monocytes 1.19 10x3/uL (0.11-0.59); #Neutrophils 5.53 10x3/uL (1.40-6.50); %Basophils 0.3 % (0.0-1.0); %Eosinophils 3.3 % (0.0-10.0); %Lymphocytes 10.5 % (21.0-51.0); %Monocytes 15.1 % (0.0-10.0); %Neutrophils 70.0 % (42.0-75.0); Hematocrit 32.0 % (36.0-47.0); Hemoglobin 9.4 g/dL (12.0-16.0); Mean Corpuscular Hemoglobin 28.3 pg (27.0-31.0); Mean Corpuscular Volume 96.4 fL (78.0-98.0); Platelet Count 184 10x3/uL (130-400); Red Blood Cell (RBC) Count 3.32 mill/uL (4.20-5.40); White Blood Cell (WBC) Count 7.89 10x3/uL (4.8-10.8)
[2025-06-12 04:41] LABS: ALT (SGPT) Less than 7 U/L (Less than 34); AST (SGOT) 12 U/L (11-34); Albumin 2.1 g/dL (3.1-4.5); Alkaline Phosphatase 151 U/L (40-110); Anion Gap 14 mmol/L (10-20); BUN (Urea Nitrogen) 32 mg/dL (9.8-20.1); Bilirubin, Total 0.3 mg/dL (0.3-1.2); Calc. Creatinine Clearance 21 mL/min (70-130); Calcium 8.9 mg/dL (7.8-10.44); Carbon Dioxide 20 mmol/L (23-31); Chloride 99 mmol/L (98-107); Globulin 4.4 g/dL (2.4-3.5); Glucose 86 mg/dL (83-110); Potassium 4.4 mmol/L (3.5-5.1); Sodium 129 mmol/L (136-145)
[2025-06-13 04:35] LABS: #Basophils Less than 0.03 10x3/uL (0.0-0.2); #Eosinophils 0.39 10x3/uL (0.0-0.7); #Monocytes 1.14 10x3/uL (0.11-0.59); #Neutrophils 6.19 10x3/uL (1.40-6.50); %Basophils 0.2 % (0.0-1.0); %Eosinophils 4.5 % (0.0-10.0); %Lymphocytes 9.5 % (21.0-51.0); %Monocytes 13.1 % (0.0-10.0); %Neutrophils 71.4 % (42.0-75.0); Hematocrit 31.6 % (36.0-47.0); Hemoglobin 9.3 g/dL (12.0-16.0); Mean Corpuscular Hemoglobin 28.1 pg (27.0-31.0); Mean Corpuscular Volume 95.5 fL (78.0-98.0); Platelet Count 200 10x3/uL (130-400); Red Blood Cell (RBC) Count 3.31 mill/uL (4.20-5.40); White Blood Cell (WBC) Count 8.67 10x3/uL (4.8-10.8)
[2025-06-13 04:52] LABS: ALT (SGPT) Less than 7 U/L (Less than 34); AST (SGOT) 10 U/L (11-34); Albumin 2.1 g/dL (3.1-4.5); Alkaline Phosphatase 147 U/L (40-110); Anion Gap 15 mmol/L (10-20); BUN (Urea Nitrogen) 39 mg/dL (9.8-20.1); Bilirubin, Total 0.2 mg/dL (0.3-1.2); Calc. Creatinine Clearance 17 mL/min (70-130); Calcium 9.1 mg/dL (7.8-10.44); Carbon Dioxide 21 mmol/L (23-31); Chloride 100 mmol/L (98-107); Globulin 4.4 g/dL (2.4-3.5); Glucose 80 mg/dL (83-110); Potassium 4.7 mmol/L (3.5-5.1); Sodium 131 mmol/L (136-145)
[2025-06-13 16:00] VITALS: TEMP 97.9
[2025-06-13 16:03] VITALS: BP 107/66
== END 2025-06-13 17:50 | disposition home or self-care (01) | DRG 640 ==
LOC: 2NO 21:08 → PCU 21:36
PROVIDERS: ADMIT Family Medicine; ATTEND Family Medicine
PROC: 3E03329 Introduction of Other Anti-infective into Peripheral Vein, Percutaneous Approach (ICD-10-PCS; 2025-06-07)
PROC: 5A1D70Z Performance of Urinary Filtration, Intermittent, Less than 6 Hours Per Day (ICD-10-PCS; principal; 2025-06-09)
DX: E87.5 Hyperkalemia (principal); N18.6 End stage renal disease; I69.959 Hemiplegia and hemiparesis following unspecified cerebrovascular disease affecting unspecified side; I13.2 Hypertensive heart and chronic kidney disease with heart failure and with stage 5 chronic kidney disease, or end stage renal disease; I24.89 Other forms of acute ischemic heart disease; F03.93 Unspecified dementia, unspecified severity, with mood disturbance; I48.92 Unspecified atrial flutter; R78.81 Bacteremia; Z68.42 Body mass index [BMI] 45.0-49.9, adult; E87.1 Hypo-osmolality and hyponatremia; B95.61 Methicillin susceptible Staphylococcus aureus infection as the cause of diseases classified elsewhere; I44.1 Atrioventricular block, second degree; D63.1 Anemia in chronic kidney disease; E66.01 Morbid (severe) obesity due to excess calories; I25.10 Atherosclerotic heart disease of native coronary artery without angina pectoris; E78.5 Hyperlipidemia, unspecified; I27.20 Pulmonary hypertension, unspecified; R50.9 Fever, unspecified; I50.9 Heart failure, unspecified; E11.22 Type 2 diabetes mellitus with diabetic chronic kidney disease; B95.7 Other staphylococcus as the cause of diseases classified elsewhere; Z99.2 Dependence on renal dialysis; Z88.8 Allergy status to other drugs, medicaments and biological substances; Z79.899 Other long term (current) drug therapy; Z79.82 Long term (current) use of aspirin; Z79.4 Long term (current) use of insulin
CPT/HCPCS: 36415; 36416; 70450; 71045; 74176; 80053; 82805; 83605; 83880; 84100; 84145; 84484; 85025; 86704; 86706; 86803; 87040; 87077; 87149; 87186; 87340; 87633; 87636; 90935; 93005; 93010; 93306; 94760; 96374; 96375; G0257; J0612; J0690; J0692; J1644; J1815; J3375; Q5105